=== PATIENT | male | born 1945 | race Hispanic/Latino ===

== ENCOUNTER 2020-11-17 12:23 | Inpatient (IN) | payer MEDICARE ==
[~2020-11-17 12:23] MED LIST: Iopamidol-370 76% 500 ML 1 ML ONE
--- NOTE | 2020-11-17 13:45 | RAD ---
EXAM: Single view of the chest HISTORY: Shortness of breath with exertion COMPARISON: None FINDINGS: Single view of the chest shows a normal sized cardiomediastinal silhouette. Increased inte rstitial lung markings are present. There are possible scattered multifocal airspace opacities in the lungs. Degenerative changes are seen in the spine. IMPRESSION: Possible multifocal subtle infiltrates
[2020-11-17 14:10] LABS: #Lymphocytes 0.6 thou/uL (1.20-3.40); #Monocytes 0.5 thou/uL (0.11-0.59); #Neutrophils 12.6 thou/uL (1.40-6.50); %Basophils 0.1 % (0.0-1.0); %Eosinophils 0.1 % (0.0-10.0); %Lymphocytes 4.7 % (21.0-51.0); %Monocytes 3.3 % (0.0-10.0); %Neutrophils 91.8 % (42.0-75.0); Hemoglobin 6.8 g/dL (14.0-18.0); Mean Corpuscular HGB CONC 34.6 g/dL (32.0-36.0); Mean Corpuscular Hemoglobin 31.3 pg (27.0-31.0); Mean Corpuscular Volume 90.4 fL (78.0-98.0); Mean Platelet Volume 7.7 fL (7.4-10.4); Platelet Count 379 thou/uL (130-400); RBC Distribution Width 13.6 % (11.5-14.5); Red Blood Cell (RBC) Count 2.18 mill/uL (4.70-6.10); White Blood Cell (WBC) Count 13.7 thou/uL (4.8-10.8)
[2020-11-17 14:31] LABS: ALT (SGPT) 15 U/L (8-55); AST (SGOT) 29 U/L (5-34); Albumin 3.7 g/dL (3.4-4.8); Alkaline Phosphatase 77 U/L (40-110); Anion Gap 17 mmol/L (10-20); BUN (Urea Nitrogen) 23 mg/dL (8.4-25.7); Bilirubin, Total 0.4 mg/dL (0.2-1.2); Calc. Creatinine Clearance 0 mL/min (70-130); Calcium 8.4 mg/dL (7.8-10.44); Carbon Dioxide 21 mmol/L (23-31); Chloride 100 mmol/L (98-107); Globulin 2.8 g/dL (2.4-3.5); Glucose 198 mg/dL (83-110); Potassium 4.1 mmol/L (3.5-5.1); Protein, Total 6.5 g/dL (5.8-8.1); Sodium 134 mmol/L (136-145)
[2020-11-17 15:19] LABS: CKMB 14.9 ng/mL (0-6.6)
[2020-11-17] MEDS ORDERED: Pantoprazole 40 MG VIAL ONE ×2 (17:21→17:22)
[2020-11-17 18:40] LABS: Troponin I 3.864 ng/mL (< 0.028)
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
[2020-11-17] MEDS ORDERED: Lactated Ringer's 1,000 ML IV SCH (19:45)
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
[2020-11-17] MEDS ORDERED: Acetaminophen 325 MG TAB PO PRN (20:36)
[2020-11-17] MEDS ORDERED: Ondansetron ODT 4 MG TAB PO PRN (20:36)
[2020-11-17] MEDS ORDERED: Sodium Chloride 0.9% (PF) 10 ML VIAL FS PRN (21:00)
[2020-11-17 21:20] LABS: INR-International Normal Ratio 1.2; PTT 25.7 sec (22.9-36.1); Prothrombin Time 15.6 sec (12.0-14.7)
[2020-11-17 21:32] LABS: #Lymphocytes 1.3 thou/uL (1.20-3.40); #Monocytes 0.7 thou/uL (0.11-0.59); #Neutrophils 10.2 thou/uL (1.40-6.50); %Basophils 0.4 % (0.0-1.0); %Eosinophils 0.2 % (0.0-10.0); %Lymphocytes 10.3 % (21.0-51.0); %Monocytes 5.7 % (0.0-10.0); %Neutrophils 83.4 % (42.0-75.0); Mean Corpuscular HGB CONC 33.7 g/dL (32.0-36.0); Mean Corpuscular Hemoglobin 31.1 pg (27.0-31.0); Mean Corpuscular Volume 92.3 fL (78.0-98.0); Mean Platelet Volume 8.2 fL (7.4-10.4); Platelet Count 300 thou/uL (130-400); RBC Distribution Width 13.7 % (11.5-14.5); Red Blood Cell (RBC) Count 2.25 mill/uL (4.70-6.10); White Blood Cell (WBC) Count 12.2 thou/uL (4.8-10.8)
[2020-11-17 21:48] LABS: Hemoglobin A1c 8.1 % (4.0-6.0)
[2020-11-17 21:51] LABS: Troponin I 4.651 ng/mL (< 0.028)
[2020-11-17] MEDS ORDERED: Dextrose 5% in Water 1,000 ML IV PRN (22:35)
[2020-11-17] MEDS ORDERED: HumaLOG 300 UNITS/3 ML VIAL SC PRN ×2 (22:35)
[2020-11-17] MEDS ORDERED: Dextrose 50% Abboject 50 ML SYRINGE SLOW IVP PRN (22:35)
[2020-11-17] MEDS ORDERED: Furosemide 40 MG/4 ML VIAL SLOW IVP SCH (22:45)
[2020-11-17] MEDS ORDERED: Furosemide 40 MG/4 ML VIAL ONE (23:45)
[2020-11-18 01:02] VITALS: BMI 32.6
[2020-11-18 02:01] LABS: #Eosinphils 0.1 thou/uL (0.0-0.7); #Lymphocytes 1.3 thou/uL (1.20-3.40); #Monocytes 0.7 thou/uL (0.11-0.59); #Neutrophils 9.1 thou/uL (1.40-6.50); %Eosinophils 0.7 % (0.0-10.0); %Lymphocytes 11.3 % (21.0-51.0); %Monocytes 5.9 % (0.0-10.0); Hemoglobin 8.6 g/dL (14.0-18.0); Mean Corpuscular HGB CONC 34.6 g/dL (32.0-36.0); Mean Corpuscular Volume 89.5 fL (78.0-98.0); Mean Platelet Volume 7.7 fL (7.4-10.4); Platelet Count 317 thou/uL (130-400); RBC Distribution Width 13.4 % (11.5-14.5); Red Blood Cell (RBC) Count 2.77 mill/uL (4.70-6.10); White Blood Cell (WBC) Count 11.1 thou/uL (4.8-10.8)
[2020-11-18 02:33] LABS: Anion Gap 16 mmol/L (10-20); BUN (Urea Nitrogen) 21 mg/dL (8.4-25.7); Calc. Creatinine Clearance 59 mL/min (70-130); Calcium 8.3 mg/dL (7.8-10.44); Carbon Dioxide 22 mmol/L (23-31); Chloride 103 mmol/L (98-107); Glucose 134 mg/dL (83-110); Potassium 3.9 mmol/L (3.5-5.1); Sodium 137 mmol/L (136-145)
[2020-11-18] MEDS ORDERED: Furosemide 40 MG/4 ML VIAL SLOW IVP SCH (02:48)
[2020-11-18 02:49] LABS: CKMB 14.3 ng/mL (0-6.6); Critical Call CKMB RESULT DECREASING
[2020-11-18 06:01] LABS: SARS-CoV-2 PCR by NAA Not Detected (NotDetected)
--- NOTE | 2020-11-18 06:03 | PDOC.FM ---
- Subjective Subjective: Mr. Adan Puente is doing well this morning and denies any complaints/concerns. He continues to deny abdominal pain, chest pain/pressure/discomfort. He denies any BMs since admission. Tele shows NSR in the 60s-70s. He is agreeable to GI and cards evals today. - Objective Vital Signs & Weight: Vital Signs (12 hours) Temp Pulse Resp BP BP Pulse Ox 11/18/20 04:12 97.8 F 70 20 138/63 99 11/18/20 00:50 98.7 F 62 20 158/68 H 95 11/17/20 20:36 97.9 F 63 18 118/38 L 99 11/17/20 20:26 98.3 F 72 15 137/63 99 Weight Weight 89.04 kg I&O: 11/16/20 11/17/20 11/18/20 06:59 06:59 06:59 Intake Total 0 Output Total 1075 Balance -1075 Result Diagrams: 11/18/20 01:42 11/18/20 01:42 Phys Exam - Physical Examination Constitutional: NAD Neck: supple Respiratory: no wheezing, clear to auscultation bilateral Cardiovascular: RRR 3/6 systolic murmur loudest at PMI Gastrointestinal: soft, non-tender, no distention, positive bowel sounds Musculoskeletal: no edema Neurological: non-focal, moves all 4 limbs Psychiatric: normal affect, A&O x 3 Skin: no rash Dx/Plan - Plan Plan: Patient is a 75M admitted for: GI Bleed -H/H 6.8/19.7, 2u pRBC ordered in the ED -> 4-hr post H/H is 8.6/24.7 * Continue to monitor with goal of >8 -FOBT positive -pantoprazole IV BID. IV maintenance fluids -PT 15.6, PTT/INR nml -abdomen/pelvis CT: extensive prominent diverticulosis of the descending colon and sigmoid colon with a focal area of mild wall prominence involving the sigmoid colon posteriorly. A focal mass within the sigmoid colon cannot be fully excluded. * as CXR demonstrates possible multifocal subtle infiltrates with procal 0.04, consider chest CT for further evaluation of possible malignancy -GI consult this am for likely colonoscopy and/or EGD -NPO at midnight Symptomatic Anemia -patient has had worsening GONZALEZ -2u pRBC transfused; H/H as above -VSS at this time Holosystolic murmur -Grade 3-4/6 murmur appreciated throughout chest and into abdomen -possibly exacerbated by anemia -echo pending this am -BNP 1100, will give lasix in between units of blood; strict I/O; monitor fluid status * Balance of -1075 today; euvolemic on exam -blood cultures added and pending to evaluate for endocarditis NSTEMI -likely type 2 due to demand ischemia from symptomatic anemia -trop 2.051>3.864>5.992 -patient denies any chest pain -no ST changes seen on EKG -will hold off on anticoagulation due to suspected GI bleed -Cards consult this am DM2, no hx -A1C 8.1 -mild SSI added to regimen -consider adding daily medication. caution in setting of renal function -accuchecks CKD -Creatinine 1.44 > 1.33, with unknown baseline -GFR 48 > 52 -mIVF -monitor with am BMP Diet: NPO for likely GI procedures tmrw DVTppx: SCDs, hold off anticoagulation for possible GI bleed CODE: full PCP: CC Dispo: Admitted to inpatient telemetry for symptomatic anemia likely 2/2 GI bleed and NSTEMI. eLOS >48hrs, pending GI and cards recs. Addendum - Attending - Attending Attestation Date/Time: 11/18/20 7963 I personally evaluated the patient and discussed the management with Dr. Liu I agree with the History, Examination, Assessment and Plan documented above with any addition or exceptions noted below.
[2020-11-18] MEDS ORDERED: Pantoprazole 40 MG VIAL IVP SCH (09:00)
[2020-11-18 11:39] VITALS: BP 166/72; TEMP 98.3
--- NOTE | 2020-11-18 14:33 | CON ---
DATE OF CONSULTATION: HISTORY OF PRESENT ILLNESS: The patient is a 75-year-old gentleman who presents with dyspnea and dark stool. The patient has no previous cardiac history. He states 4 days ago he started noticing having dark stool and some bright red blood per rectum. The patient started becoming short of breath. He presented to the emergency room for further evaluation. The patient denies having any chest discomfort. The patient's only known cardiac risk factor is diabetes mellitus. PAST MEDICAL HISTORY: Diabetes mellitus. PAST SURGICAL HISTORY: None. SOCIAL HISTORY: Nonsmoker. FAMILY HISTORY: No strong family history of heart disease. MEDICATIONS: None. ALLERGIES: NONE. REVIEW OF SYSTEMS: Ten-point system otherwise unremarkable. PHYSICAL EXAMINATION: GENERAL: A pale gentleman, in no acute distress. VITAL SIGNS: Blood pressure 156/72. NECK: No jugular vein distention. LUNGS: Clear to auscultation. HEART: Regular rate and rhythm. Normal S1 and S2 with a 3/6 systolic murmur. ABDOMEN: Nontender and nondistended. EXTREMITIES: Varicose veins. VASCULAR: Radial pulses 2+. LABORATORY DATA: Sodium 137, potassium 3.9, chloride 103, bicarbonate 22, BUN 29, creatinine 1.3, and glucose 134. Troponin was 5.4. White blood cell count was 11.1, hemoglobin 8.6, hematocrit 24.7, and platelets 317. EKG revealed him to have normal sinus rhythm, nonspecific ST abnormality. Echocardiogram normal left ventricular ejection fraction of 55% to 60% with severe aortic stenosis. IMPRESSION: 1. Gastrointestinal hemorrhage. 2. Aortic stenosis. 3. Non-Q-wave myocardial infarction, probably secondary to demand ischemia from anemia and aortic stenosis. 4. Mild congestive heart failure. 5. Diabetes mellitus. PLAN: This gentleman presents with a GI hemorrhage. He is suffered a small non-Q-wave myocardial infarction probably due to demand ischemia. He has severe aortic stenosis. The patient is undergoing GI evaluation. From a cardiac standpoint, he will need close followup for his aortic stenosis. We will follow this patient with you through his hospitalization. Job ID: [id number] MTDD
[2020-11-18 14:39] LABS: Cardiac Risk 4.6 (Less than 4.5)
[2020-11-18] MEDS ORDERED: metFORMIN 500 MG TAB PO SCH (17:00)
[2020-11-18] MEDS ORDERED: Atorvastatin Calcium 40 MG TAB PO SCH (21:00)
[2020-11-18] MEDS ORDERED: FLU VACC QS2020-21(65YR UP)/PF 240 MCG/0.7 ML SYRINGE IM ONE (21:00)
--- NOTE | 2020-11-19 05:00 | DIS ---
DATE OF ADMISSION: 11/17/2020 DATE OF DISCHARGE: 11/18/2020 RESIDENT: Annamaria Liu MD DISCHARGE ATTENDING: Aaron Ha MD CONSULTS: 1. GI, Dr. Gates (11/18). 2. Cardiology, Dr. Garcia (11/18). PROCEDURES: 1. Chest x-ray, (11/18) -- possible multifocal subtle infiltrate. 2. CT abdomen/pelvis (11/18) -- diverticulosis of descending colon and sigmoid colon with a focal area involving the sigmoid colon that could be related to mild diverticulitis, although a focal mass cannot be fully excluded. 3. Echocardiogram (11/18) -- ejection fraction 55% to 60% with thickened aortic valve leaflets and severe aortic stenosis. Impaired relaxation consistent with diastolic dysfunction. Severe aortic stenosis. PRIMARY DIAGNOSES: Symptomatic anemia, non-ST segment elevation myocardial infarction type 2, gastrointestinal bleed, acute kidney injury versus chronic kidney disease, holosystolic murmur, type 2 diabetes, diverticulosis, and possible sigmoid mass. SECONDARY DIAGNOSIS: None. DISCHARGE MEDICATIONS: None. DISCONTINUED MEDICATIONS: None. HISTORY OF PRESENT ILLNESS/HOSPITAL COURSE: This is a 75-year-old male with GI bleed who presented to the ED after several days of progressively worsening dyspnea on exertion. He has no reported past medical history since he has not seen a physician in 20 to 30 years. He endorses several years of intermittent black stools, but states that over the last 5 days, they had gotten worse and he was having more red and black than normal as well as more diarrhea in nature. He also endorsed intermittent changes in stool character and was uncertain about unintended weight loss. He denied any history of colonoscopy or EGD, family history of colon/rectal/stomach cancer, although states his mom had some sort of cancer. On admission, his hemoglobin was found to be 6.8 with a positive FOBT and a BNP of 1100. Given his history, a CT of the abdomen and pelvis was obtained with the results as described above. As such, the patient was transfused 2 units of packed red blood cells after which he was given Lasix to counteract the fluid overload. 4 hour post transfusion, H/H showed an improved hemoglobin of 8.6. These findings in addition to the patient's history and a procalcitonin of 0.04 were suspicious for underlying malignancy. Dr. Gates was consulted the morning of 11/18 for evaluation. On arrival, he was also found to have a troponin of 2, which was subsequently trended and continued increasing to the point of 5.992. Throughout this, the patient denied any chest pain/pressure/discomfort and he remained in normal sinus rhythm in 60s to 70s on telemetry without any events. Due to the obvious up trend in troponins, the trend order was discontinued and Dr. Garcia was consulted on the morning of 11/18. NSTEMI was noted on EKG, suspected to be 2/2 demand ischemia. On admission, he was also found to have a creatinine of 1.44. There was no baseline available, but by the time of repeat labs that had improved to 1.33. The patient has a grade 3/6 holosystolic murmur, so an echocardiogram was obtained on the morning of 11/18 with the results as described above. At this point, Dr. Gates did not have the chance to evaluate the patient and no further workup was performed as the patient chose to leave [facility]. DISPOSITION: Stable. DISCHARGE INSTRUCTIONS: 1. Location: The patient presumably went home. 2. Diet: Diabetic diet. 3. Follow up: It would be ideal if the patient could establish and follow up with the PCP in the outpatient setting. It is crucial that he be evaluated further by Gastroenterology and followed by Cardiology. Job ID: [id number] MTDD
--- NOTE | 2020-11-19 12:52 | PQF ---
CLINICAL DOCUMENTATION CLARIFICATION FORM: Dear Dr. Annamaria Liu / Dr. Aaron Ha Date: 11-19-20 Please exercise your independent, professional judgment in responding to the clarification form. Clinical indicators are provided on the bottom of this form for your review Please check appropriate box(es): [ ] Acute blood loss anemia [ ] Chronic blood loss anemia [ ] Chronic anemia of CKD [ X ] Other diagnosis Acute on chronic blood loss anemia [ ] Unable to determine For continuity of documentation, please document condition throughout progress notes and discharge summary. Thank You. To be completed by CDI/Coding staff for physician review: CLINICAL INDICATORS - SIGNS / SYMPTOMS / LABS / RESULTS AND LOCATION IN EMR LABS: Hgb Hct 2.8 @ 1400 6.8 19.7 2.8 @ 2042 7.0 20.7 2.9 @ 0142 8.6 24.7 H&P ([facility]): PMH: none GI BLEED; NSTEMI likely type 2 demand ischemia d/t symptomatic anemia SYMPTOMATIC ANEMIA; CKD RISK FACTORS / RESULTS AND LOCATION IN EMR ED: NSTEMI; GI BLEED; SYMPTOMATIC ANEMIA; H&P ([facility]en): PMH: none GI BLEED; NSTEMI likely type 2 demand ischemia d/t symptomatic anemia SYMPTOMATIC ANEMI CKD TREATMENTS / RESULTS AND LOCATION IN EMR CPOE: 2 Units PrBC 2.8.21 MAR: Lactated Ringers IV @120ml/hr IV 2.8.21 CDS Signature: Glenda Ram RN, CCDS Phone #: [phone] [email or web address] This is a permanent part of the Medical Record [facility]
== END 2020-11-18 16:00 | disposition left against medical advice (07) | DRG 377 ==
LOC: ERS 12:23 → ERHOLD 17:21 → 2NO 11-18 00:52
PROVIDERS: ADMIT Family Medicine; ATTEND Family Medicine
PROC: 30233N1 Transfusion of Nonautologous Red Blood Cells into Peripheral Vein, Percutaneous Approach (ICD-10-PCS; principal; 2020-11-17)
DX: K92.2 Gastrointestinal hemorrhage, unspecified (principal); I21.A1 Myocardial infarction type 2; N17.9 Acute kidney failure, unspecified; D62 Acute posthemorrhagic anemia; E11.22 Type 2 diabetes mellitus with diabetic chronic kidney disease; I35.0 Nonrheumatic aortic (valve) stenosis; I50.9 Heart failure, unspecified; R01.1 Cardiac murmur, unspecified; N18.9 Chronic kidney disease, unspecified; Z20.822 Contact with and (suspected) exposure to COVID-19; K63.89 Other specified diseases of intestine; Z87.891 Personal history of nicotine dependence
CPT/HCPCS: 36415; 36416; 36430; 71045; 74177; 80048; 80053; 80061; 82274; 82553; 83036; 83880; 84145; 84484; 85025; 85610; 85730; 86850; 86900; 86901; 87040; 87635; 93005; 93306; 94760; 96374; C9113; J1940; P9016; Q9967; U0003; U0005

== ENCOUNTER 2020-11-19 19:18 | Inpatient (IN) | payer MEDICARE ==
[2020-11-19 19:47] LABS: #Eosinphils 0.1 thou/uL (0.0-0.7); #Lymphocytes 0.9 thou/uL (1.20-3.40); #Monocytes 0.5 thou/uL (0.11-0.59); #Neutrophils 8.4 thou/uL (1.40-6.50); %Basophils 0.3 % (0.0-1.0); %Eosinophils 0.6 % (0.0-10.0); %Lymphocytes 9.1 % (21.0-51.0); %Monocytes 5.3 % (0.0-10.0); %Neutrophils 84.7 % (42.0-75.0); Hemoglobin 7.4 g/dL (14.0-18.0); Mean Corpuscular HGB CONC 34.4 g/dL (32.0-36.0); Mean Corpuscular Hemoglobin 31.1 pg (27.0-31.0); Mean Corpuscular Volume 90.4 fL (78.0-98.0); Mean Platelet Volume 7.4 fL (7.4-10.4); Platelet Count 361 thou/uL (130-400); RBC Distribution Width 13.8 % (11.5-14.5); Red Blood Cell (RBC) Count 2.39 mill/uL (4.70-6.10); White Blood Cell (WBC) Count 9.9 thou/uL (4.8-10.8)
[2020-11-19 19:54] LABS: INR-International Normal Ratio 1.2; Prothrombin Time 15.1 sec (12.0-14.7)
[2020-11-19 20:08] LABS: ALT (SGPT) 17 U/L (8-55); AST (SGOT) 22 U/L (5-34); Albumin 3.4 g/dL (3.4-4.8); Alkaline Phosphatase 73 U/L (40-110); Anion Gap 16 mmol/L (10-20); BUN (Urea Nitrogen) 23 mg/dL (8.4-25.7); Bilirubin, Total 0.4 mg/dL (0.2-1.2); Calc. Creatinine Clearance 0 mL/min (70-130); Calcium 8.3 mg/dL (7.8-10.44); Carbon Dioxide 23 mmol/L (23-31); Chloride 103 mmol/L (98-107); Globulin 2.6 g/dL (2.4-3.5); Glucose 209 mg/dL (83-110); Potassium 4.1 mmol/L (3.5-5.1)
[2020-11-19 20:16] LABS: Sodium 138 mmol/L (136-145)
[2020-11-19 21:14] LABS: CKMB 4.5 ng/mL (0-6.6)
--- NOTE | 2020-11-19 21:43 | PDOC.FPRHP ---
- History of Present Illness Chief Complaint: GONZALEZ, blood in stool History of Present Illness: Patient is a 75M that was recently admitted for GI bleed and NSTEMI and left AMA that returned to the ED for continued GONZALEZ and small amounts of blood in his stool. He continues to deny chest pain. He reports that he left AMA because he was afraid that he was going to need surgery, but he realizes that he needs help and agrees to be admitted. - Allergies/Adverse Reactions Allergies Allergy/AdvReac Type Severity Reaction Status Date / Time No Known Drug Allergies Allergy Unverified 11/17/20 19:52 - Home Medications Medication Instructions Recorded Confirmed Type No Known 11/18/20 11/20/20 History - History PMHx: Severe aortic stenosis, HFpEF, and DM2 all diagnosed during last admission PSHx: none FHx: mother had cancer, unknown type Social: quit smoking 30 years ago, quit drinking 20 years ago, no drug use - Review of Systems General: denies: fever/chills, weight/appetite/sleep changes Eyes: denies: eye pain, vision changes ENT: denies: nasal congestion, rhinorrhea Respiratory: reports: shortness of breath, exercise intolerance. denies: cough Cardiovascular: denies: chest pain, palpitation, edema Gastrointestinal: reports: GI bleeding. denies: nausea, vomiting, abdominal pain Genitourinary: denies: incontinence, dysuria, discharge Skin: denies: rashes, lesions Musculoskeletal: denies: pain, tenderness, stiffness Neurological: denies: numbness, syncope Psychological: denies: anxiety, depression - Vital signs BP: [101/47] HR: [75] RR: [18] Tmax: [98.2F] Pox: [99]% on [RA] Wt: [94kg] - Physical Exam Constitutional: NAD, awake, alert and oriented, well developed HEENT: normocephalic and atraumatic, EOMI, MMM Neck: supple, FROM, trachea midline Chest: no-tender to palpation, no lesions Heart: RRR, normal S1/S2, other (3/6 holosystolic murmur) Lungs: CTAB, no respiratory distress, good air movement Abdomen: soft, non-tender, bowel sounds present Musculoskeletal: normal structure, normal tone, ROM grossly normal Neurological: no focal deficit, normal sensation Skin: no rash/lesions, good turgor Heme/Lymphatic: no unusual bruising or bleeding, no purpura Psychiatric: normal mood and affect, intact recent and remote memory, other (poor judgment and insight) FMR H&P: Results - Labs Result Diagrams: 11/19/20 19:37 11/19/20 19:37 Lab results: WBC 9.9 thou/uL (4.8-10.8) 11/19/20 19:37 Hgb 7.4 g/dL (14.0-18.0) L 11/19/20 19:37 Hct 21.6 % (42.0-52.0) L 11/19/20 19:37 MCV 90.4 fL (78.0-98.0) 11/19/20 19:37 Plt Count 361 thou/uL (130-400) 11/19/20 19:37 Neutrophils % 84.7 % (42.0-75.0) H 11/19/20 19:37 Sodium 138 mmol/L (136-145) 11/19/20 19:37 Potassium 4.1 mmol/L (3.5-5.1) 11/19/20 19:37 Chloride 103 mmol/L (98-107) 11/19/20 19:37 Carbon Dioxide 23 mmol/L (23-31) 11/19/20 19:37 BUN 23 mg/dL (8.4-25.7) 11/19/20 19:37 Creatinine 1.42 mg/dL (0.7-1.3) H 11/19/20 19:37 Glucose 209 mg/dL (83-110) H 11/19/20 19:37 Calcium 8.3 mg/dL (7.8-10.44) 11/19/20 19:37 Total Bilirubin 0.4 mg/dL (0.2-1.2) 11/19/20 19:37 AST 22 U/L (5-34) 11/19/20 19:37 ALT 17 U/L (8-55) 11/19/20 19:37 Alkaline Phosphatase 73 U/L (40-110) 11/19/20 19:37 CK-MB (CK-2) 4.5 ng/mL (0-6.6) 11/19/20 19:37 Serum Total Protein 6.0 g/dL (5.8-8.1) 11/19/20 19:37 Albumin 3.4 g/dL (3.4-4.8) 11/19/20 19:37 - EKG Interpretation EKG: VR 69, WY 138, QRS 94, QTc 443, no ST segment elevation FMR H&P: A/P - Plan Patient is a 75M with PMHx of severe aortic stenosis, HFpEF, DM2 admitted for: #GI Bleed -patient has continued to have blood in his stools since leaving AMA -H/H 7.4/21.6, down from 8.6/24.7 after receiving 2u pRBC during last admission -2u pRBC ordered to be given, will get 4-hr post H/H -40mg pantoprazole IV BID -abdomen/pelvis CT from last admission: extensive prominent diverticulosis of the descending colon and sigmoid colon with a focal area of mild wall prominence involving the sigmoid colon posteriorly. A focal mass within the sigmoid colon cannot be fully excluded. -as CXR demonstrates possible multifocal subtle infiltrates with procal 0.04, consider chest CT for further evaluation of possible malignancy -GI consult in am for likely colonoscopy and/or EGD, no need for emergent consult at this time as VSS -NPO at midnight #Symptomatic Anemia -patient has had worsening GONZALEZ -H/H 7.4/21.6, down from 8.6/24.7 after 2u pRBC during last admission -2u pRBC ordered, will get 4-hr post H/H -VSS at this time #HFpEF -echo 11/18: EF 55-60%, findings suggestive of diastolic dysfunction -BNP 499 down from 1120, will give IV lasix with 2u pRBC -will avoid fluid overload #Severe Aortic Stenosis -Grad 3-4/6 murmur appreciated throughout chest and into abdomen -possible exacerbated by anemia -echo during last admission: EF 55-60%, severe aortic stenosis, diastolic dysfunction -Dr. Garcia consulted during last admission; will re-consult in am, appreciate recs #NSTEMI, likely type 2 due to demand ischemia from symptomatic anemia -trop 2.051>3.864 (on 11/17)>1.88 today -patient denies any chest pain -no ST changes see on EKG -2u pRBC ordered in ED, will follow with 4-hr post H/H -as patient had elevated trop on 11/17 and has since declined, in combination with GI bleed, will hold off on anticoagulation at this time -ASCVD risk: 43.8%, will start statin #DM2 -A1C 8.1 -mild ISS added to regimen -can consider adding daily medication in am #CKD -Creatinine 1.42, GFR 48 -unknown baseline -patient is getting 2u pRBC, will monitor kidney function closely Diet: NPO for likely GI procedures tmrw DVTppx: SCDs, hold off anticoagulation for possible GI bleed Dispo: Admitted to inpatient telemetry for symptomatic anemia likely 2/2 GI bleed CODE: full PCP: Sarah after leaving [facility] FMR H&P: Upper Level - Plan Date/Time: 11/19/202141 I, [], have evaluated this patient and agree with findings/plan as outlined by general intern resident. Pertinent changes/additions are listed here. Addendum - Attending - Attending Attestation Date/Time: 11/20/207 I personally evaluated the patient and discussed the management with Dr. Zaldivar. I agree with the History, Examination, Assessment and Plan documented above with any addition or exceptions noted below. He has returned to ER after leaving [facility] 2 days ago for same complaint. exam unremarkable. trop still elevated. will tx 2 u PRBC due to suspect CVD for goal hemoglobin of 10. GI to see tomorrow to evaluate for GI bleeding and possible colon mass seen on CT scan 2 days ago.
[2020-11-19 22:11] LABS: Bilirubin Negative (Negative); Blood, Urine Negative (Negative); Clarity Clear (Clear); Glucose, Urine (Dipstick) 30 mg/dL (Negative); Ketone, Urine Trace mg/dL (Negative); Leukocyte Negative Leu/uL (Negative); Nitrite Negative (Negative); Protein, Urine (Dipstick) 20 mg/dL (Neg-Trace); Specific Gravity, Urine 1.021 (1.002-1.036); Urobilinogen Normal mg/dL (Less than 2); pH, Urine 5.5 (5.0-9.0)
[2020-11-19] MEDS ORDERED: Furosemide 40 MG/4 ML VIAL SLOW IVP SCH (22:15)
[2020-11-19] MEDS ORDERED: HumaLOG 300 UNITS/3 ML VIAL SC PRN ×2 (23:08)
[2020-11-19] MEDS ORDERED: Dextrose 5% in Water 1,000 ML IV PRN (23:08)
[2020-11-19] MEDS ORDERED: Acetaminophen 325 MG TAB PO PRN (23:08)
[2020-11-19] MEDS ORDERED: Dextrose 50% Abboject 50 ML SYRINGE SLOW IVP PRN (23:08)
[2020-11-19 23:17] LABS: Troponin I 1.979 ng/mL (< 0.028)
[2020-11-20] MEDS ORDERED: Pantoprazole 40 MG VIAL IVP SCH (00:45)
[2020-11-20 02:20] LABS: Critical Call Chem Troponin I RESULT DECREASING; Troponin I 1.709 ng/mL (< 0.028)
--- NOTE | 2020-11-20 07:01 | PDOC.FM ---
- Subjective Subjective: Mr. Adan Puente is doing well this morning. He states he left because he thought he was going to be cut open and that "nobody explained to me what was going to happen". He is agreeable to cardiology and GI eval and states he will not leave AMA now that he knows what is happening. He denies CP, chest discomfort, abdominal pain. He endorses weakness in his knees when he stands to walk, as well as memory issues. He is asking if we can fix these things in the hospital. - Objective Vital Signs & Weight: Vital Signs (12 hours) Temp Pulse Resp BP Pulse Ox 11/20/20 04:22 98.8 F 99 11/20/20 04:07 98.6 F 99 11/20/20 02:51 98.2 F 100 11/20/20 00:15 98.9 F 18 99 11/20/20 00:00 98.6 F 18 100 11/19/20 22:45 98.6 F 62 18 143/67 H 100 Weight Weight 89.403 kg Most Recent Monitor Data Heart Rate from ECG 66 NIBP 156/74 Respiration from ECG 16 I&O: 11/18/20 11/19/20 11/20/20 06:59 06:59 06:59 Intake Total 1050 Output Total 1490 Balance -440 Result Diagrams: 11/20/20 11:20 11/20/20 11:20 Phys Exam - Physical Examination Constitutional: NAD Neck: supple, full ROM Respiratory: clear to auscultation bilateral Cardiovascular: RRR Significant systolic murmur at PMI c/w hx of severe Gastrointestinal: soft, non-tender, no distention, positive bowel sounds Musculoskeletal: no edema Neurological: non-focal, moves all 4 limbs Psychiatric: normal affect, A&O x 3 Skin: no rash Dx/Plan - Plan Plan: Patient is a 75M admitted for GI bleed after leaving [facility] on 11/18: GI Bleed -patient has continued to have blood in his stools since leaving [facility] on 11/18 -H/H 7.4/21.6, down from 8.6/24.7 after receiving 2u pRBC during last admission * Continue to monitor with goal of >8 -2u pRBC being transfused. 4-hr post H/H pending -40mg pantoprazole IV BID -abdomen/pelvis CT from last admission: extensive prominent diverticulosis of the descending colon and sigmoid colon with a focal area of mild wall prominence involving the sigmoid colon posteriorly. A focal mass within the sigmoid colon cannot be fully excluded. -CXR demonstrates possible multifocal subtle infiltrates with procal 0.04, consider chest CT for further evaluation of possible malignancy -GI consult today, Dr. Tello, for likely colonoscopy and/or EGD. Appreciate recs -NPO Symptomatic Anemia -patient has had worsening GONZALEZ -H/H 7.4/21.6, down from 8.6/24.7, as above -Transfusion and 4hr post labs, as above -VSS at this time HFpEF -echo 11/18: EF 55-60%, findings suggestive of diastolic dysfunction -BNP 499 down from 1120 at previous admission. will give IV lasix with 2u pRBC -monitor fluid status. Euvolemic on exam this am -Strict I/Os, caution with fluid resuscitation Severe Aortic Stenosis -Grade 3-4/6 murmur appreciated throughout chest and into abdomen -possibly exacerbated by anemia -echo during last admission with results as above -Dr. Garcia consulted during last admission and wanted to follow. Re-consulted cardiology, Dr. Long, this am. Appreciate recs NSTEMI -suspect it's type 2 due to demand ischemia from symptomatic anemia -trop 2.051>5.99 on 11/17 > 1.88 down to 1.709 today -patient denies any chest pain. no ST changes see on EKG -admit to tele -as patient had elevated trop on 11/17 and has since declined, in combination with GI bleed, will hold off on anticoagulation at this time -ASCVD risk: 43.8%, will start statin -cards consult, as above DM2 -A1C 8.1 -hold SSI at this time. suspect pt will not be compliant given all the medication initiation and medical changes occurring this hospitalization -can consider adding daily medication after discussion with pt -no accu checks CKD -Creatinine 1.42, GFR 48 c/w values on 11/17 -unknown baseline -monitor with 4hr post labs and then daily BMP Dispo: Admitted to inpatient telemetry for symptomatic anemia likely 2/2 GI bleed. GI and cards consults this am. eLOS >48hrs Diet: NPO for likely GI procedure DVTppx: SCDs, hold off anticoagulation for possible GI bleed CODE: full PCP: Sarah after leaving AMA Addendum - Attending - Attending Attestation Date/Time: 11/21/20 0709 I personally evaluated the patient and discussed the management with Dr. Amor Macedo yesterday. I agree with the History, Examination, Assessment and Plan documented above with any addition or exceptions noted below.
[2020-11-20] MEDS: Pantoprazole 40 MG VIAL IVP SCH ×2 (08:53→20:01)
[2020-11-20 11:36] LABS: #Eosinphils 0.1 thou/uL (0.0-0.7); #Lymphocytes 1.1 thou/uL (1.20-3.40); #Monocytes 0.5 thou/uL (0.11-0.59); #Neutrophils 6.7 thou/uL (1.40-6.50); %Basophils 0.5 % (0.0-1.0); %Eosinophils 0.9 % (0.0-10.0); %Lymphocytes 12.8 % (21.0-51.0); %Monocytes 6.4 % (0.0-10.0); %Neutrophils 79.4 % (42.0-75.0); Hemoglobin 9.2 g/dL (14.0-18.0); Mean Corpuscular HGB CONC 33.8 g/dL (32.0-36.0); Mean Corpuscular Volume 91.7 fL (78.0-98.0); Mean Platelet Volume 7.5 fL (7.4-10.4); Platelet Count 294 thou/uL (130-400); RBC Distribution Width 14.4 % (11.5-14.5); Red Blood Cell (RBC) Count 2.95 mill/uL (4.70-6.10); White Blood Cell (WBC) Count 8.4 thou/uL (4.8-10.8)
[2020-11-20 11:54] LABS: Anion Gap 15 mmol/L (10-20); BUN (Urea Nitrogen) 23 mg/dL (8.4-25.7); Calc. Creatinine Clearance 63 mL/min (70-130); Calcium 8.1 mg/dL (7.8-10.44); Carbon Dioxide 26 mmol/L (23-31); Chloride 102 mmol/L (98-107); Glucose 150 mg/dL (83-110); Potassium 3.7 mmol/L (3.5-5.1); Sodium 139 mmol/L (136-145)
--- NOTE | 2020-11-20 12:34 | CON ---
DATE OF CONSULTATION: 11/20/2020 REQUESTING PHYSICIAN: Dr. Liu. REASON FOR CONSULTATION: GI bleeding and anemia. HISTORY OF PRESENT ILLNESS: Michael Puente is a very pleasant 75-year-old man, who reports no significant past medical history prior to recent presentation. He was briefly hospitalized here on November 17, presenting with [id number] myocardial infarction and shortness of breath. He had an echocardiogram, which demonstrated severe aortic stenosis, and troponin was elevated over 5. He was evaluated by Cardiology, but actually left the hospital AMA 2 days ago. However, at home, he continued to have issues with dyspnea, particularly on exertion, and he also had an episode of orthostatic lightheadedness, though no syncope, and that prompted presentation again. Troponin remains elevated, but to a lesser degree. He is hemodynamically stable. His dyspnea is stable. He denies any chest pain or any abdominal pain, but he does report that intermittently for actually several months, he has been having some blood in his stool, this will either be bright red or dark red or black, it changes colors. He is anemic. In fact, during recent evaluation, hemoglobin was 6.8. He received 2 units of RBC transfusion and it went up to 8.6, but upon presentation here, now it is down again to 7.4. He is getting 2 more units of blood today. Cardiology re-evaluation is pending. He has never undergone EGD or colonoscopy, has no history of peptic ulcer disease. His mother had some unknown malignancy. Notably, CT of the abdomen and pelvis from last admission suggested possible area of wall prominence involving the sigmoid colon posteriorly, and mass lesion could not be fully excluded. REVIEW OF SYSTEMS: Full review of systems including constitutional, head, eyes, ears, nose, throat, GI, , cardiovascular, respiratory, musculoskeletal, neurologic systems is negative except as noted in the HPI. PAST MEDICAL HISTORY: 1. Diabetes, new diagnosis. 2. Severe aortic stenosis, new diagnosis. 3. Anemia, new diagnosis. OUTPATIENT MEDICATIONS: None. INPATIENT MEDICATIONS: 1. Pantoprazole 40 mg IV q.12 hours. 2. Lasix 40 mg IV. 3. Lipitor. 4. Tylenol p.r.n. FAMILY HISTORY: His mother had some unknown malignancy. SOCIAL HISTORY: He quit smoking 30 years ago. Quit drinking 20 years ago. No drug use. PHYSICAL EXAMINATION: VITAL SIGNS: Temperature 98.1, pulse 64, blood pressure 140/68, and 99% oxygen saturation on room air. GENERAL: A 75-year-old man, lying in bed comfortably, in no distress. SKIN: He is a bit pale, no jaundice. No rashes were palpable. EYES: No scleral icterus. Extraocular movements intact. ENT: Mucous membranes moist. No oral lesions. LYMPH: No submandibular or supraclavicular lymphadenopathy. THYROID: Nontender to palpation. HEART: He has a loud systolic murmur. Regular rate and rhythm. LUNGS: Clear to auscultation bilaterally. ABDOMEN: Bowel sounds present. Soft, nontender to palpation. EXTREMITIES: No peripheral edema. NEUROLOGIC: Cranial nerves 2 through 12 intact bilaterally. No focal deficits. LABORATORY STUDIES: WBC 9.9, hemoglobin 7.4, platelets 361. INR 1.2. Glucose 144, sodium 138, potassium 4.1, BUN 23, creatinine 1.42. LFTs all normal with total bilirubin 0.4, alkaline phosphatase 73, AST 22, ALT 17. CK-MB is only 4.5. Troponin elevated to 1.709, this is downtrending over the past 3 days. Albumin 3.4. BNP is 499.5. Hemoglobin A1c is 8.1%. Urinalysis negative. COVID PCR was negative on 11/17/2020. IMAGING STUDIES: Echocardiogram from 11/18/2020, demonstrated severe aortic stenosis, ejection fraction 55% to 60%, there is diastolic dysfunction. CT of the abdomen and pelvis from 11/17/2020, demonstrated mild focal thickening in the sigmoid colon, compatible with possible mild diverticulitis versus mass lesion. There is extensive colonic diverticulosis throughout the left colon, there is cholelithiasis with no inflammatory changes, and vascular calcification in the region of the aortic valve as well as scattered atherosclerosis. ASSESSMENT AND PLAN: 1. Anemia, severe, symptomatic. This is a normocytic anemia in the context of overt intermittent bleeding over the past few months. He responded to transfusion on last admission and is getting 2 more units today. Most likely reason is gastrointestinal blood loss, but he is hemodynamically stable from this. 2. Gastrointestinal bleeding. Clinically, this sounds more like a lower gastrointestinal source intermittently; however, cannot rule out upper gastrointestinal lesion. It is possible this may be related to his diverticulosis. Neoplasm could not be excluded in the sigmoid colon based on recent CT imaging. We had a long discussion that endoscopic workup is warranted to evaluate for bleeding lesion. He expresses understanding and is willing to undergo bowel preparation this evening for anticipated EGD/colonoscopy tomorrow. 3. Severe aortic stenosis. 4. Jyl-MY-keqtipiyd myocardial infarction. This was thought to be due to demand ischemia, it is probably secondary to his severe anemia as well as aortic stenosis. Troponin is downtrending in the past few days. Cardiology re-evaluation is pending. I would like to see formal cardiac clearance prior to proceeding with endoscopy tomorrow, but we will go ahead and tentatively plan for EGD/colonoscopy tomorrow. Thank you for the consultation. Please call anytime with questions or concerns. Job ID: [id number]
--- NOTE | 2020-11-20 14:07 | PQF ---
CLINICAL DOCUMENTATION CLARIFICATION FORM: Dear PIO r* Date: 11/20/2020 8210 Please exercise your independent, professional judgment in responding to the clarification form. Clinical indicators are provided on the bottom of this form for your review. Please check appropriate box(es): [ ] Acute blood loss anemia [ ] Anemia: [ ] Aplastic [ ] Nutritional [ ] Chronic Anemia: [ ] Blood loss [ ] Hemolytic [ ] Simple [ ] Due to Vitamin B12 Deficiency [ ] Other [ ] Anemia of Chronic Disease (please specify) [ ] Anemia due to Neoplasm: [ ] Primary [ ] Secondary [ X ] Other diagnosis Acute on chronic blood loss anemia [ ] Unable to determine In addition, please specify: Present on Admission (POA): [ X ] Yes [ ] No [ ] Unable to determine For continuity of documentation, please document condition throughout progress notes and discharge summary. Thank You. To be completed by CDI/Coding staff for physician review: CLINICAL INDICATORS - SIGNS / SYMPTOMS / LABS / RESULTS AND LOCATION IN EMR Was just here for an active GI bleed, left [facility], still complaining of SOB with exertion, Final Dx: GI Bleed, Symptomatic Anemia (Ed Report) 11/19 Symptomatic anemia, pt has had worsening GONZALEZ, H/H 7.42/ 21.6, down from 8.6/24.7 after 2U PRBC during last admission( H&P / Zaldivar) 11/19 Patient has continued to have blood in his stools since leaving [facility] on 11/18, CT- a focal mass within the sigmoid colon cannot be fully excluded. (PN/Paco Macedo) 11/20/2020 RISK / RESULT AND LOCATION IN EMR GI Bleed, Symptomatic anemia ( H&P/Zaldivar) 11/19 TREATMENTS / RESULTS AND LOCATION IN EMR Transfusion x 2 Leukoreduced RBC 10/18 GI consult (Case) 11/20 Thank you! CDS Signature: Robyn Victoria RN Phone #: [phone] Date/Time. 11/20/2020 This is a permanent part of the Medical Record [facility]
[2020-11-20] MEDS ORDERED: GoLYTELY 4,000 ml Bottle PO SCH (17:00)
--- NOTE | 2020-11-20 17:41 | CON ---
DATE OF CONSULTATION: 11/20/2020 REASON FOR CONSULTATION: Recent elevated troponins. PRIMARY TEACHER OF THE DEAF: Dr. Best Garcia. HISTORY OF PRESENT ILLNESS: Mr. Arellano is a 75-year-old gentleman Qatari-speaking mostly comes to the hospital for GI bleed. He was actually admitted just a few days back with bleeding that was apparently lower GI bleed. He had a hemoglobin as low as 6.8 on admission, improved to 8.6 after transfusions. During that admission, troponins were drawn and were actually elevated up to about 5.9. Dr. Garcia evaluated him and deemed him to be demand ischemia secondary to the stress of blood loss that he has had. During that admission, he had an echocardiogram that showed normal LV function, but severe aortic stenosis with valve area of 0.6 cm2, mean gradient about 42 mmHg, and max velocity of 4.1 m/sec. He actually left against medical advice eventually as he was having continued shortness of breath and continued to see blood in his stool. Apparently, he left because he thought mostly because he had been offered to have a colonoscopy and endoscopy and he was under the impression that they were going to have to cut his abdomen open to do this. I spoke with him today. He denies any chest pain, chest tightness or pressure, only the shortness of breath that is actually better since his blood levels are better now. PAST MEDICAL HISTORY: 1. Severe aortic stenosis. 2. Type 2 diabetes. 3. Diastolic heart failure. 4. All these diagnoses were given to him on his last admission. He does not see physicians. PAST SURGICAL HISTORY: None. OUTPATIENT MEDICATIONS: None. ALLERGIES: NO KNOWN DRUG ALLERGIES. FAMILY HISTORY: Noncontributory. SOCIAL HISTORY: Former smoker, quit about 30 years ago. Former alcohol use, quit about 20 years ago. No drug use. REVIEW OF SYSTEMS: A 12-point review of systems was done and was found to be negative other than stated in the history of present illness. PHYSICAL EXAMINATION: VITAL SIGNS: Temperature 97.6, pulse 71, respiratory rate 16, saturating 99% on room air, blood pressure 150/65. GENERAL: Awake, alert, oriented x3, in no distress. HEENT: Normocephalic and atraumatic. NECK: Supple. LUNGS: Clear. CARDIOVASCULAR: S1 and S2. No S3 or S4. There is a grade 3/6 late-peaking systolic murmur at the right upper sternal border, it radiated to the rest of the precordium. ABDOMEN: Soft. Positive bowel sounds. EXTREMITIES: No edema. SKIN: Warm and dry. LABORATORY DATA: Laboratory work was reviewed. CBC with a white count of 9. Hemoglobin 7.4 on admission, up to 9.2 after transfusion. Platelet count of 361. Coags were normal. Chemistries showed normal BUN, but creatinine 1.42, back down to 1.2. GFR was 48, up to 57 now. BNP was 499. Troponin was 1.8, then 1.9, then 1.7. UA was unremarkable. EKG was reviewed. ASSESSMENT: 1. Acute blood loss anemia. 2. Type 2 World [employer] Organization type of myocardial infarction, demand ischemia. 3. Severe aortic stenosis. PLAN: 1. I spoke with Mr. Arellano at length about his situation with the aortic stenosis. Clearly, his heart is not in a situation where it can tolerate anemia that well. 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 He tells me that before any of this started, he was not having any symptoms and he feels that his heart is just fine. I told him that his heart valve was a problem that it was very tight and we may need to do surgery on his valve. A surgery that comes from the groin and not open. He tells me that he is very adamant about not having any procedures done to his heart as he has heard of people having complications with these. I told him that there is a percentage of complications with these cases; however, the risk of the surgery was a lot lower than the benefit that he would get and the natural progression of disease with aortic stenosis was eventually from it. He tells me that he is ready to go whenever he needs to go, that he does not want to have any surgical procedures to his heart. I told him that we could just do a procedure that is not surgery. He still does not want anything done to his heart. Then, I told him that he would be high risk for the procedure that is planned as far as his GI bleeding and he tells me that then we probably should fix his heart first. I told him that it is really just a complex situation where he is high risk for his GI procedure given his severe aortic stenosis and we cannot really go in and see if there is any issue with his coronary arteries as he would need some type of blood thinner and he is actively bleeding at this time. More than likely he needs to undergo endoscopies procedure, I would recommend limiting the amount of sedation as much as possible; however, he will be high risk because of his severe aortic stenosis. 2. More than likely as above, his bleeding issues are from AVMs from his severe aortic stenosis; however, this is unknown until we go in and check. He may have other things going on as well. 3. He really wants to proceed with upper and lower endoscopies what was recommended by Gastroenterology. He wishes to proceed. He is aware of the risk and is okay with this. Thank you for letting us to participate in the care of your patient complex situation at this time. Job ID: [id number]
[2020-11-20] MEDS: Atorvastatin Calcium 40 MG TAB PO SCH (20:01)
--- NOTE | 2020-11-21 07:10 | PDOC.FM ---
- Subjective Subjective: Mr. Arellano is doing well this morning and is prepared to go forth with the EGD and colonoscopy. He has also changed his mind and would like to get the heart cath done now, as well. He is concerned about signing some papers where he could transfer his house to his step-daughter's name "in case something happens during the procedure". - Objective Vital Signs & Weight: Vital Signs (12 hours) Temp Pulse Resp BP Pulse Ox 11/21/20 03:23 98.7 F 71 18 141/64 H 96 11/20/20 19:20 99.5 F 73 20 134/60 98 Weight Admit Weight 89.358 kg Weight 90.22 kg Most Recent Monitor Data Heart Rate from ECG 63 NIBP 134/65 Respiration from ECG 16 I&O: 11/19/20 11/20/20 11/21/20 06:59 06:59 06:59 Intake Total 1050 5070 Output Total 1490 1165 Balance -440 3905 Result Diagrams: 11/21/20 07:00 11/21/20 07:00 Phys Exam - Physical Examination Constitutional: NAD Neck: supple, full ROM Neurological: non-focal, moves all 4 limbs Psychiatric: normal affect, A&O x 3 Dx/Plan - Plan Plan: Patient is a 75M admitted for GI bleed after leaving A on 11/18: GI Bleed -2u pRBC transfused 11/20. 4-hr post H/H .12/06 -40mg pantoprazole IV BID -concern for malignancy given results of CT abd/pelvis, CXR, and procal of 0.04 -GI consult today, Dr. Tello. Appreciate recs * Requested cardiac clearance, see below * EGD and colonoscopy planned for today -NPO Symptomatic Anemia -patient has had worsening GONZALEZ -H/H .12/06 after transfusion on 11/20 > hgb 8.8 this am -VSS at this time -continue to monitor with am CBC HFpEF -echo 11/18: EF 55-60%, findings suggestive of diastolic dysfunction -monitor fluid status -Strict I/Os, caution with fluid resuscitation Severe Aortic Stenosis -Grade 3-4/6 murmur appreciated throughout chest and into abdomen -possibly exacerbated by anemia -echo during last admission with results as above -Consulted cardiology, Dr. Long. Appreciate recs * Recommends cath for eval/tx of aortic valve although states the risk is too great currently with his active bleed, so he would recommend performing the scopes first and performing thesein the outpt setting NSTEMI -suspect it's type 2 due to demand ischemia from symptomatic anemia -admit to tele -as patient had elevated trop on 11/17 and has since declined, in combination with GI bleed, will hold off on anticoagulation at this time -ASCVD risk: 43.8%, will start statin -cards consult, as above DM2 -A1C 8.1 -hold SSI at this time. suspect pt will not be compliant given all the medicat ion initiation and medical changes occurring this hospitalization -can consider adding daily medication after discussion with pt -no accu checks at this time CKD -Creatinine 1.42, GFR 48 c/w values on 11/17 > Cr 1.24, GFR 57 this am -unknown baseline -monitor with am BMP Dispo: Inpt tele. EGD and colonoscopy today. D/c pending GI and cards recs. Diet: NPO for likely GI procedure DVTppx: SCDs, hold off anticoagulation for possible GI bleed CODE: full PCP: Sarah after leaving [facility] Addendum - Attending - Attending Attestation Date/Time: 11/21/20 2542 I personally evaluated the patient and discussed the management with Dr. Paco Macedo. I agree with the History, Examination, Assessment and Plan documented above with any addition or exceptions noted below.
[2020-11-21 07:15] LABS: #Eosinphils 0.1 thou/uL (0.0-0.7); #Lymphocytes 0.9 thou/uL (1.20-3.40); #Monocytes 0.5 thou/uL (0.11-0.59); #Neutrophils 6.7 thou/uL (1.40-6.50); %Basophils 0.3 % (0.0-1.0); %Eosinophils 0.8 % (0.0-10.0); %Lymphocytes 10.8 % (21.0-51.0); %Monocytes 5.8 % (0.0-10.0); %Neutrophils 82.2 % (42.0-75.0); Hemoglobin 8.8 g/dL (14.0-18.0); Mean Corpuscular HGB CONC 34.2 g/dL (32.0-36.0); Mean Corpuscular Hemoglobin 30.9 pg (27.0-31.0); Mean Corpuscular Volume 90.3 fL (78.0-98.0); Mean Platelet Volume 7.3 fL (7.4-10.4); Platelet Count 305 thou/uL (130-400); RBC Distribution Width 14.1 % (11.5-14.5); Red Blood Cell (RBC) Count 2.87 mill/uL (4.70-6.10); White Blood Cell (WBC) Count 8.2 thou/uL (4.8-10.8)
[2020-11-21 07:30] LABS: Anion Gap 13 mmol/L (10-20); BUN (Urea Nitrogen) 18 mg/dL (8.4-25.7); Calc. Creatinine Clearance 68 mL/min (70-130); Calcium 7.9 mg/dL (7.8-10.44); Carbon Dioxide 29 mmol/L (23-31); Chloride 102 mmol/L (98-107); Glucose 174 mg/dL (83-110); Potassium 3.7 mmol/L (3.5-5.1); Sodium 140 mmol/L (136-145)
[2020-11-21] MEDS: Pantoprazole 40 MG VIAL IVP SCH ×2 (08:07→20:05)
[2020-11-21] MEDS: Diclofenac 1% 100 GM GEL TP SCH ×4 (08:09→20:03)
[2020-11-21] MEDS ORDERED: Ketamine 50 MG/ML (10ML VIAL) ONE (10:23)
[2020-11-21] MEDS ORDERED: Lidocaine 1% PF 5 ML VIAL ONE (13:24)
[2020-11-21] MEDS ORDERED: PROPOFOL 200 MG/20 ML VIAL ONE (13:24)
--- NOTE | 2020-11-21 13:48 | PDOC.CPN ---
- Subjective Date: 11/21/20 Time: 13:45 Interval history: He is thinking about cardiac procedures. No angina. No SOB, no syncope. - Review of Systems General: denies: fever/chills, weight/appetite/sleep changes, night sweats, fatigue Respiratory: denies: cough, congestion, shortness of breath, exercise intolerance Cardiovascular: denies: chest pain, palpitation, edema, paroxysmal nocturnal dyspnea, orthopnea Gastrointestinal: denies: nausea, vomiting, diarrhea, constipation, abd pain, GI bleeding Musculoskeletal: denies: pain, tenderness, stiffness, swelling, arthritis/arthralgias Neurological: denies: numbness, syncope, seizure, weakness - Objective Allergies/Adverse Reactions: Allergies Allergy/AdvReac Type Severity Reaction Status Date / Time No Known Drug Allergies Allergy Unverified 11/17/20 19:52 Visit Medications: Current Medications Acetaminophen (Acetaminophen 325 Mg Tab) 650 mg PO Q4H PRN PRN Reason: Headache/Fever/Mild Pain (1-3) Atorvastatin Calcium (Atorvastatin Calcium 40 Mg Tab) 40 mg PO HS [facility] Last Admin: 11/20/20 20:01 Dose: 40 mg Documented by: Dextrose/Water (Dextrose 50% Abboject 50 Ml Syringe) 25 gm SLOW IVP PRN PRN PRN Reason: Hypoglycemia Diclofenac Sodium (Diclofenac 1% 100 Gm Gel) 2 gm TP QID [facility] Last Admin: 11/21/20 13:40 Dose: 1 appful Documented by: Glucagon (Glucagon 1 Mg/Ml Vial) 1 mg IM PRN PRN PRN Reason: Hypoglycemia Dextrose/Water (D5w) 1,000 mls @ 0 mls/hr IV .Q0M PRN PRN Reason: Hypoglycemia Pantoprazole Sodium (Pantoprazole 40 Mg Vial) 40 mg IVP Q12HR [facility] Last Admin: 11/21/20 08:07 Dose: 40 mg Documented by: Sodium Chloride (Flush - Normal Saline 10 Ml Syringe) 10 ml IVF Q12HR [facility] Last Admin: 11/21/20 08:12 Dose: 10 ml Documented by: Sodium Chloride (Flush - Normal Saline 10 Ml Syringe) 10 ml IVF PRN PRN PRN Reason: Saline Flush Vital Signs & Weight: Vital Signs Temp Pulse Resp BP Pulse Ox 11/21/20 12:35 75 18 100 11/21/20 07:57 98 11/21/20 07:00 98.5 F 68 18 158/70 H 98 11/21/20 03:23 98.7 F 71 18 141/64 H 96 Admit Weight 197 lb Weight 198 lb 14.4 oz - Physical Exam General: alert & oriented x3 HEENT: mucus membranes moist Neck: supple neck Cardiac: regular rate and rhythm, systolic murmur Lungs: clear to auscultation Neuro: grossly intact Abdomen: active bowel sounds Extremities: no edema Skin: clear Musculoskeletal: no pain - Labs Result Diagrams: 11/21/20 07:00 11/21/20 07:00 Troponin/CKMB CK-MB (CK-2) 4.5 ng/mL (0-6.6) 11/19/20 19:37 Troponin I 1.709 ng/mL (< 0.028) H* 11/20/20 01:34 - Telemetry Sinus rhythms and dysrhythmias: sinus rhythm - Assessment/Plan Assessment/Plan: 1. GI bleed 2. NSTEMI, demand ischemia, type 2 NC. 3. Severer EDY 0.6, Max yassine 4.2 m/sec and mean grad 42 mmHg. PLAN: - Endoscopies for bleeding evaluation. - Once bleeding controlled and hgb stable will start work up for new aortic valve. Most likely will be done as outpatient.
[2020-11-21 17:46] VITALS: BMI 33.0
--- NOTE | 2020-11-21 18:47 | OP ---
DATE OF PROCEDURE: 11/21/2020 This is a GI endoscopy note. PHOTOENGRAVER APPRENTICE SURGEON: None. PROCEDURES: 1. Esophagogastroduodenoscopy, diagnostic. 2. Colonoscopy with snare polypectomy. INDICATIONS: 1. Anemia. 2. GI bleeding/rectal bleeding. 3. Severe aortic stenosis. MEDICATIONS: See Anesthesia record. FINDINGS: After discussion of the risks, benefits, and alternatives of the procedure, informed consent was obtained and witnessed. Pre-endoscopic cardiopulmonary examination was satisfactory. Time-out was performed before sedation was achieved. Sedation was achieved with Anesthesia assistance in the endoscopy unit. A Pentax adult upper endoscope was placed into the oropharynx and passed through the cricopharyngeus under direct visualization. The esophageal mucosa appeared normal throughout with a normal-appearing Z-line. The endoscope was advanced into the stomach. Forward and retroflexed views of the entire gastric mucosa were obtained. The gastric mucosa appeared normal throughout. The endoscope was advanced through the pylorus and into the first and second portions of the duodenum, which also appeared normal. The upper endoscope was completely withdrawn and the patient was repositioned. Digital rectal exam was performed. The patient has some scar tissue around the anal area with some skin tags consistent with external hemorrhoidal skin tags. Digital rectal exam was performed and the internal hemorrhoidal cushions were palpated. A Pentax adult colonoscope was inserted into the anus and passed forward to the cecum in the usual fashion. The cecal base was identified by the appendiceal orifice as well as the ileocecal valve. The terminal ileum was intubated and the ileal mucosa appeared normal. The colonoscope was slowly withdrawn in a gradual and circumferential manner with careful examination of the entire colonic mucosa. The quality of the prep was good. There was diffuse diverticulosis throughout the colon, which is particularly heavy in the sigmoid colon and the descending colon. There was no evidence of any old blood or active bleeding throughout the colon. No bleeding lesions identified. There was a single colon polyp measuring about 4 mm in diameter in the transverse colon, which was completely removed with cold snare and retrieved for pathology. Retroflexion in the rectum demonstrated medium to large internal hemorrhoids. The colonoscope was completely withdrawn and the patient allowed to recover. The patient tolerated the procedure well. There were no immediate postprocedure complications. IMPRESSION: 1. Normal esophagogastroduodenoscopy. 2. Diffuse colonic diverticulosis with no evidence of diverticulitis. 3. Internal and external hemorrhoids. 4. Otherwise, normal colonoscopy to the terminal ileum. RECOMMENDATIONS: 1. Advance diet. 2. Follow up pathology on the colon polyp. 3. Iron supplementation. 4. Continue with cardiac workup. GI will sign off. Please call back anytime with questions or concerns. Job ID: [id number]
[2020-11-21] MEDS: Atorvastatin Calcium 40 MG TAB PO SCH (20:05)
[2020-11-22 03:56] LABS: #Eosinphils 0.2 thou/uL (0.0-0.7); #Lymphocytes 1.2 thou/uL (1.20-3.40); #Monocytes 0.5 thou/uL (0.11-0.59); #Neutrophils 6.4 thou/uL (1.40-6.50); %Basophils 0.5 % (0.0-1.0); %Eosinophils 2.4 % (0.0-10.0); %Lymphocytes 14.1 % (21.0-51.0); %Monocytes 6.1 % (0.0-10.0); %Neutrophils 76.8 % (42.0-75.0); Hemoglobin 8.6 g/dL (14.0-18.0); Mean Corpuscular Hemoglobin 30.4 pg (27.0-31.0); Mean Corpuscular Volume 92.1 fL (78.0-98.0); Mean Platelet Volume 7.8 fL (7.4-10.4); Platelet Count 296 thou/uL (130-400); RBC Distribution Width 14.4 % (11.5-14.5); Red Blood Cell (RBC) Count 2.82 mill/uL (4.70-6.10); White Blood Cell (WBC) Count 8.3 thou/uL (4.8-10.8)
[2020-11-22 04:15] LABS: Anion Gap 12 mmol/L (10-20); BUN (Urea Nitrogen) 17 mg/dL (8.4-25.7); Calc. Creatinine Clearance 69 mL/min (70-130); Calcium 7.6 mg/dL (7.8-10.44); Carbon Dioxide 26 mmol/L (23-31); Chloride 104 mmol/L (98-107); Glucose 163 mg/dL (83-110); Potassium 3.8 mmol/L (3.5-5.1); Sodium 138 mmol/L (136-145)
--- NOTE | 2020-11-22 07:07 | PDOC.FM ---
- Subjective Subjective: Patient denies CP or SOB today. He is eager to go home. - Objective Vital Signs & Weight: Vital Signs (12 hours) Temp Pulse Resp BP Pulse Ox 11/22/20 03:58 98.7 F 66 20 139/63 97 11/21/20 20:00 97 Weight Admit Weight 89.358 kg Weight 90.22 kg Most Recent Monitor Data Heart Rate from ECG 63 NIBP 134/65 Respiration from ECG 16 I&O: 11/21/20 11/22/20 11/23/20 06:59 06:59 06:59 Intake Total 5070 Output Total 1165 Balance 3905 Result Diagrams: 11/22/20 03:11 11/22/20 03:11 EKG Reviewed by me: Yes (tele: SR 60s) Phys Exam - Physical Examination Constitutional: NAD HEENT: moist MMs, sclera anicteric Neck: no nodes Respiratory: no wheezing, no rales, no rhonchi, clear to auscultation bilateral Cardiovascular: RRR, no significant murmur Gastrointestinal: soft, non-tender Musculoskeletal: no edema, pulses present Neurological: non-focal Lymphatic: no nodes Psychiatric: normal affect Skin: no rash Dx/Plan - Plan Plan: Patient is a 75M admitted for GI bleed after leaving AMA on 11/18: GI Bleed -2u pRBC transfused 11/20. 4-hr post H/H .12/06. 8.04/04 today -40mg pantoprazole IV BID -concern for malignancy given results of CT abd/pelvis, CXR, and procal of 0.04 -GI consult today, Dr. Tello. Appreciate recs * Normal EGD * Diverticulosis, external and internal hemorrhoids and polyp on transverse colon that was removed. Path pending. No signs of bleed. * GI has signed off Symptomatic Anemia -patient has had worsening GONZALEZ -H/H .12/06 after transfusion on 11/20 > Hgb 8.6 this AM. -VSS at this time -continue to monitor with am CBC HFpEF -echo 11/18: EF 55-60%, findings suggestive of diastolic dysfunction -monitor fluid status -Strict I/Os, caution with fluid resuscitation Severe Aortic Stenosis -Grade 3-4/6 murmur appreciated throughout chest and into abdomen -possibly exacerbated by anemia -echo during last admission with results as above -Consulted cardiology, Dr. Long. Appreciate recs * Await recommendations following results of EGD and Colonoscopy. May discharge today if still desires outpatient workup. NSTEMI -suspect it's type 2 due to demand ischemia from symptomatic anemia -admit to tele -as patient had elevated trop on 11/17 and has since declined, in combination with GI bleed, will hold off on anticoagulation at this time -ASCVD risk: 43.8%, will start statin -cards consult, as above DM2 -A1C 8.1 -hold SSI at this time. suspect pt will not be compliant given all the medication initiation and medical changes occurring this hospitalization -can consider adding daily medication after discussion with pt -no accu checks at this time CKD -Creatinine 1.42, GFR 48 c/w values on 11/17 > Cr 1.14 this am -unknown baseline -monitor with am BMP Dispo: D/C pending Zain recs today. Diet: NPO for likely GI procedure DVTppx: SCDs, hold off anticoagulation for possible GI bleed CODE: full PCP: CC-ilsa after leaving AMA
[2020-11-22] MEDS ORDERED: hydrALAZINE 20 MG/ML VIAL SLOW IVP PRN (08:32)
[2020-11-22] MEDS: Diclofenac 1% 100 GM GEL TP SCH ×4 (09:32→21:07)
[2020-11-22] MEDS: Pantoprazole 40 MG VIAL IVP SCH (09:33)
--- NOTE | 2020-11-22 11:34 | PRG ---
DATE OF SERVICE: 11/22/2020 Please see the note from Dr. Cameron Lind, for which I agree. The patient was scoped yesterday for the anemia and was given 2 units of blood. It sounds like all he really found was hemorrhoids. We are working up his aortic stenosis and we are waiting to see what Cardiology says as far as they can do as an outpatient or an inpatient because otherwise he is stable and can go home. Chest is clear. Regular rate and rhythm. Abdomen is benign. So, plan is basically going to be on what Cardiology wants to do. Job ID: [id number]
--- NOTE | 2020-11-22 14:57 | PDOC.CPN ---
- Subjective Date: 11/22/20 Time: 14:56 - Review of Systems General: denies: fever/chills, weight/appetite/sleep changes, night sweats, fatigue Respiratory: denies: cough, congestion, shortness of breath, exercise intolerance Cardiovascular: denies: chest pain, palpitation, edema, paroxysmal nocturnal dyspnea, orthopnea Gastrointestinal: denies: nausea, vomiting, diarrhea, constipation, abd pain, GI bleeding Musculoskeletal: denies: pain, tenderness, stiffness, swelling, arthriti s/arthralgias Neurological: denies: numbness, syncope, seizure, weakness - Objective Allergies/Adverse Reactions: Allergies Allergy/AdvReac Type Severity Reaction Status Date / Time No Known Drug Allergies Allergy Unverified 11/17/20 19:52 Visit Medications: Current Medications Acetaminophen (Acetaminophen 325 Mg Tab) 650 mg PO Q4H PRN PRN Reason: Headache/Fever/Mild Pain (1-3) Atorvastatin Calcium (Atorvastatin Calcium 40 Mg Tab) 40 mg PO HS [facility] Last Admin: 11/21/20 20:05 Dose: 40 mg Documented by: Dextrose/Water (Dextrose 50% Abboject 50 Ml Syringe) 25 gm SLOW IVP PRN PRN PRN Reason: Hypoglycemia Diclofenac Sodium (Diclofenac 1% 100 Gm Gel) 2 gm TP QID [facility] Last Admin: 11/22/20 12:33 Dose: 1 appful Documented by: Ferrous Sulfate (Ferrous Sulfate 325 Mg Tab) 325 mg PO QAM-WM [facility] Glucagon (Glucagon 1 Mg/Ml Vial) 1 mg IM PRN PRN PRN Reason: Hypoglycemia Hydralazine HCl (Hydralazine 20 Mg/Ml Vial) 10 mg SLOW IVP Q4H PRN PRN Reason: SBP Greater Than 180 Last Admin: 11/22/20 09:34 Dose: 10 mg Documented by: Dextrose/Water (D5w) 1,000 mls @ 0 mls/hr IV .Q0M PRN PRN Reason: Hypoglycemia Pantoprazole Sodium (Pantoprazole 40 Mg Vial) 40 mg IVP Q12HR [facility] Last Admin: 11/22/20 09:33 Dose: 40 mg Documented by: Sodium Chloride (Flush - Normal Saline 10 Ml Syringe) 10 ml IVF Q12HR [facility] Last Admin: 11/22/20 09:34 Dose: 10 ml Documented by: Sodium Chloride (Flush - Normal Saline 10 Ml Syringe) 10 ml IVF PRN PRN PRN Reason: Saline Flush Vital Signs & Weight: Vital Signs Temp Pulse Resp BP Pulse Ox 11/22/20 08:00 99.0 F 62 16 189/86 H 97 11/22/20 03:58 98.7 F 66 20 139/63 97 Admit Weight 197 lb Weight 198 lb 14.4 oz - Physical Exam HEENT: normocephaly Neck: supple neck, no JVD/HJR Cardiac: regular rate and rhythm, systolic murmur Lungs: clear to auscultation, no wheeze, rales, rhonchi Neuro: cranial nerve 2-12 intact Abdomen: unremarkable Extremities: no edema Skin: clear Musculoskeletal: normal range of motion - Labs Result Diagrams: 11/22/20 03:11 11/22/20 03:11 Troponin/CKMB CK-MB (CK-2) 4.5 ng/mL (0-6.6) 11/19/20 19:37 Troponin I 1.709 ng/mL (< 0.028) H* 11/20/20 01:34 - Telemetry Sinus rhythms and dysrhythmias: sinus rhythm - Assessment/Plan Assessment/Plan: 1. GI bleed 2. NSTEMI, demand ischemia, type 2 UT. 3. Severer EDY 0.6, Max yassine 4.2 m/sec and mean grad 42 mmHg. I spoke with the pt. today via an business analytics analyst. He says he doesn't remember anything about a heart problem. I explained to him about the AV and said that once the Hgb. is stable then he will need to undergo a cardiac cath to eval. the coronaries and the AV. He was uncertain about any of this and just wanted to know how long he has to stay in the hospital He does not appear very symptomatic with the a/A at this time and would need a stable Hgb. before cardiac workup. Once the Hgb. is stable, he can be d/c'd and follow up with Dr. anthony for further eval.
[2020-11-22] MEDS: Atorvastatin Calcium 40 MG TAB PO SCH (21:01)
[2020-11-23 04:01] LABS: #Eosinphils 0.3 thou/uL (0.0-0.7); #Monocytes 0.5 thou/uL (0.11-0.59); #Neutrophils 5.9 thou/uL (1.40-6.50); %Basophils 0.6 % (0.0-1.0); %Eosinophils 3.3 % (0.0-10.0); %Lymphocytes 12.5 % (21.0-51.0); %Monocytes 6.2 % (0.0-10.0); %Neutrophils 77.3 % (42.0-75.0); Hemoglobin 8.4 g/dL (14.0-18.0); Mean Corpuscular HGB CONC 33.3 g/dL (32.0-36.0); Mean Corpuscular Hemoglobin 30.8 pg (27.0-31.0); Mean Corpuscular Volume 92.7 fL (78.0-98.0); Mean Platelet Volume 7.9 fL (7.4-10.4); Platelet Count 307 thou/uL (130-400); RBC Distribution Width 14.1 % (11.5-14.5); Red Blood Cell (RBC) Count 2.73 mill/uL (4.70-6.10); White Blood Cell (WBC) Count 7.7 thou/uL (4.8-10.8)
[2020-11-23 04:14] LABS: Anion Gap 12 mmol/L (10-20); BUN (Urea Nitrogen) 18 mg/dL (8.4-25.7); Calc. Creatinine Clearance 71 mL/min (70-130); Calcium 7.8 mg/dL (7.8-10.44); Carbon Dioxide 25 mmol/L (23-31); Chloride 105 mmol/L (98-107); Glucose 159 mg/dL (83-110); Potassium 4.4 mmol/L (3.5-5.1); Sodium 138 mmol/L (136-145)
--- NOTE | 2020-11-23 07:06 | PDOC.FM ---
- Objective Vital Signs & Weight: Vital Signs (12 hours) Temp Pulse Resp BP Pulse Ox 11/23/20 03:23 98.1 F 77 20 154/70 H 98 11/22/20 23:50 68 20 139/74 11/22/20 20:00 98.3 F 64 20 112/59 L 97 Weight Admit Weight 89.358 kg Weight 88.178 kg Most Recent Monitor Data Heart Rate from ECG 63 NIBP 134/65 Respiration from ECG 16 I&O: 11/22/20 11/23/20 11/24/20 06:59 06:59 06:59 Intake Total 1530 Output Total 350 Balance 1180 Result Diagrams: 11/23/20 03:09 11/23/20 03:09 Dx/Plan - Plan Plan: Patient is a 75M admitted for GI bleed after leaving AMA on 11/18: GI Bleed -2u pRBC transfused 11/20. 4-hr post H/H .12/06. 8.04/04 today -40mg pantoprazole IV BID -concern for malignancy given results of CT abd/pelvis, CXR, and procal of 0.04 -GI consult today, Dr. Tello. Appreciate recs * Normal EGD * Diverticulosis, external and internal hemorrhoids and polyp on transverse colon that was removed. Path pending. No signs of bleed. * GI has signed off Symptomatic Anemia -patient has had worsening GONZALEZ -H/H .12/06 after transfusion on 11/20 > Hgb 8.6 this AM. -VSS at this time -continue to monitor with am CBC HFpEF -echo 11/18: EF 55-60%, findings suggestive of diastolic dysfunction -monitor fluid status -Strict I/Os, caution with fluid resuscitation Severe Aortic Stenosis -Grade 3-4/6 murmur appreciated throughout chest and into abdomen -possibly exacerbated by anemia -echo during last admission with results as above -Consulted cardiology, Dr. Long. Appreciate recs * Await recommendations following results of EGD and Colonoscopy. May discharge today if still desires outpatient workup. NSTEMI -suspect it's type 2 due to demand ischemia from symptomatic anemia -admit to tele -as patient had elevated trop on 11/17 and has since declined, in combination with GI bleed, will hold off on anticoagulation at this time -ASCVD risk: 43.8%, will start statin -cards consult, as above DM2 -A1C 8.1 -hold SSI at this time. suspect pt will not be compliant given all the medication initiation and medical changes occurring this hospitalization -can consider adding daily medication after discussion with pt -no accu checks at this time CKD -Creatinine 1.42, GFR 48 c/w values on 11/17 > Cr 1.14 this am -unknown baseline -monitor with am BMP Dispo: D/C pending Zain recs today. Diet: NPO for likely GI procedure DVTppx: SCDs, hold off anticoagulation for possible GI bleed CODE: full PCP: Sarah after leaving AMA
[2020-11-23] MEDS ORDERED: Ferrous Sulfate 325 MG TAB PO SCH ×2 (08:00)
[2020-11-23] MEDS: Diclofenac 1% 100 GM GEL TP SCH ×2 (08:30→11:51)
[2020-11-23 12:23] VITALS: BP 165/73; TEMP 98.4
--- NOTE | 2020-11-25 00:01 | PQF ---
CLINICAL DOCUMENTATION CLARIFICATION FORM: Dear : Miguel Angel Chaves Date / Time: 11/25/2020 0000 Please exercise your independent, professional judgment in responding to the clarification form. Clinical indicators are provided on the bottom of this form for your review In y our clinical opinion based on clinical findings below, can you please identify the etiology of GI bleed if due to: Please check appropriate box(es): [ ] Diverticulosis [ ] Colon Polyp [ ] Internal Hemorrhoids [ ] External Hemorrhoids [ ] Other diagnosis, please specify: [ ] Unable to determine Physician Signature: Date/Time: For continuity of documentation, please document condition throughout progress notes and discharge summary. Thank You To be completed by CDI/Coding staff for physician review: Present Clinical Indicators - Signs / Symptoms / Labs Results and Location in Medical Record [x] RBC 2.39, Hgb 7.4, Hct 21.6 Laboratory 11/19 [x] BP 100/62, Pulse 78, Resp 18, Temp 98.3 Vital signs 11/19 [x] Admitted for GI bleed H&P p1 11/19 Dr Zaldivar [x] Small nadeem of blood in his stool H&P p1 11/19 Dr Zaldiavr [x] GI bleed sound more like a lower GI source Consult Case 11/20 [x] Diverticulosis, Transverse colon polyp, Internal and external hemorrhoids Operative report 11/21 Dr Tello Present Risk Factors Results and Location in Medical Record [x] 75 year-old Male H&P p1 11/19 Dr Zaldivar [x] DM H&P p1 11/19 Dr Zaldivar [x] Former smoker H&P p1 11/19 Dr Zaldivar [x] Symptomatic Anemia H&P p3 11/19 Dr Zaldivar [x] Diverticulosis Operative report 11/21 Case [x] Colon polyps Operative report 11/21 Case [x] Internal hemorrhoids Operative report 11/21 Case [x] External hemorrhoids Operative report 11/21 Dr Tello Present Treatments Results and Location in Medical Record [x] IV Protonix 40 mg MAR 11/20 [x] IVF NS 1L MAR 11/20 [x] PRBC Blood bank 11/20 [x] GE Consult Consult Dr Tello 11/20 [x] EGD Operative report 11/21 Dr Tello [x] Colonosopy with Polypectomy Operative report 11/21 Dr Tello CDS/Direct Mail Marketer Signature: Nisha Flores Phone #: ext [phone] Date/Time: 11/25/20 0000 This is a permanent part of the Medical Record [facility]
--- NOTE | 2020-11-27 15:21 | DIS ---
DATE OF ADMISSION: 11/19/2020 DATE OF DISCHARGE: 11/23/2020 RESIDENT: Cameron Lind MD ADMITTING ATTENDING: Edgar Stovall MD DISCHARGE ATTENDING: Ash Chaves MD CONSULTS: Hema Long, Martín Tello and Speech. PROCEDURES: The patient underwent colonoscopy and endoscopy on November 21, 2020. PRIMARY DIAGNOSES: 1. GI bleed. 2. Symptomatic anemia. 3. Heart failure with preserved ejection fraction. 4. Severe aortic stenosis. 5. NSTEMI. 6. Diabetes type 2. SECONDARY DIAGNOSIS: Chronic kidney disease. DISCHARGE MEDICATIONS: 1. Atorvastatin 40 mg p.o. at night. 2. Diclofenac TID. 3. Pantoprazole 40 mg p.o. b.i.d. 4. Ferrous sulfate 325 mg p.o. b.i.d. with meals. DISCONTINUED MEDICATIONS: None. HISTORY OF PRESENT ILLNESS AND HOSPITAL COURSE: Mr. Adan Puente is a 75-year-old male, who was recently admitted for GI bleed and NSTEMI and left AMA and returned to the ED for continued dyspnea on exertion and small amount of blood in his stool. Continues to deny chest pain. Reports of AMA because he was afraid that he is going to need surgery. Verbalized he needed help and agreed to be admitted. The patient was transfused 2 units of packed red blood cells and four hour post H and H were 9.2 and 27. On the day of discharge, it was 8.6 and 26. GI was consulted and Dr. Tello performed an EGD and a colonoscopy, which revealed diverticulosis, external and internal hemorrhoids, and a polyp on transverse colon that was removed. GI recommended continuing twice a day PPI as well as iron. Echo performed on November 18 revealed an ejection fraction of 55% to 60% with findings suggestive of diastolic dysfunction as well as severe aortic stenosis with grade 3 to 4/[address] Long with Cardiology was consulted and recommended outpatient workup for possible TAVR in the future. The patient's GI bleed workup was completed and he was discharged home with instructions to follow up with Cardiology for aortic stenosis workup. DISPOSITION: Stable. DISCHARGE INSTRUCTIONS: 1. Location: Home. 2. Diet: Heart healthy. 3. Activity: As tolerated. 4. Followup: Follow up with Dr. Long for outpatient workup for severe aortic stenosis. Follow up with primary care doctor in 1 to 2 weeks. Job ID: [id number] MTDD
--- NOTE | 2020-11-29 18:12 | EKG ---
Test Reason : Blood Pressure : / mmHG Vent. Rate : 069 BPM Atrial Rate : 069 BPM P-R Int : 138 ms QRS Dur : 094 ms QT Int : 414 ms P-R-T Axes : 017 -18 070 degrees QTc Int : 443 ms Normal sinus rhythm Nonspecific ST and T wave abnormality Abnormal ECG Confirmed by KRUPA Flores, JIN ([id number]), advertising editor SADIA RODRIGUEZ ([id number]) on 11/29/2020 6:12:03 PM Referred By: Confirmed By:JIN GENTILE M.D.
== END 2020-11-23 15:35 | disposition home or self-care (01) | DRG 377 ==
LOC: ERS 19:18 → 2NO 21:28
PROVIDERS: ADMIT Family Medicine; ATTEND Family Medicine
PROC: 30233N1 Transfusion of Nonautologous Red Blood Cells into Peripheral Vein, Percutaneous Approach (ICD-10-PCS; 2020-11-20)
PROC: 0DBL8ZZ Excision of Transverse Colon, Via Natural or Artificial Opening Endoscopic (ICD-10-PCS; principal; 2020-11-21)
PROC: 0DJ08ZZ Inspection of Upper Intestinal Tract, Via Natural or Artificial Opening Endoscopic (ICD-10-PCS; 2020-11-21)
DX: K92.1 Melena (principal); I21.A1 Myocardial infarction type 2; I50.32 Chronic diastolic (congestive) heart failure; D62 Acute posthemorrhagic anemia; I35.0 Nonrheumatic aortic (valve) stenosis; N18.9 Chronic kidney disease, unspecified; E11.22 Type 2 diabetes mellitus with diabetic chronic kidney disease; K63.5 Polyp of colon; K64.4 Residual hemorrhoidal skin tags; K64.8 Other hemorrhoids; K57.30 Diverticulosis of large intestine without perforation or abscess without bleeding; Z80.9 Family history of malignant neoplasm, unspecified; Z87.891 Personal history of nicotine dependence
CPT/HCPCS: 36415; 36416; 36430; 80048; 80053; 81003; 82553; 83880; 84484; 85025; 85610; 86850; 86900; 86901; 88305; 93005; C9113; J0360; J1940; J2704; P9016

== ENCOUNTER 2021-12-07 21:09 | Inpatient (IN) | payer MEDICARE ==
[2021-12-08] MEDS ORDERED: Ondansetron PF 4 MG/2 ML Vial IVP PRN (02:25)
[2021-12-08] MEDS ORDERED: Ondansetron ODT 4 MG TAB PO PRN (02:25)
[2021-12-08] MEDS ORDERED: Acetaminophen 650 MG Suppository PR PRN (02:25)
[2021-12-08] MEDS ORDERED: Acetaminophen 325 MG TAB PO PRN (02:25)
[2021-12-08] MEDS ORDERED: Dextrose 50% Abboject 50 ML SYRINGE SLOW IVP PRN (02:59)
[2021-12-08] MEDS ORDERED: Dextrose 5% in Water 1,000 ML IV PRN (02:59)
[2021-12-08] MEDS ORDERED: HumaLOG 300 UNITS/3 ML VIAL SC PRN ×2 (02:59)
[2021-12-08] MEDS ORDERED: Magnesium 2 GM/50 ML 2 GM in Premix Bag 1 BAG IVPB SCH (03:30)
[2021-12-08 05:48] LABS: #Eosinphils 0.3 thou/uL (0.0-0.7); #Monocytes 0.5 thou/uL (0.11-0.59); #Neutrophils 5.8 thou/uL (1.40-6.50); %Basophils 0.3 % (0.0-1.0); %Eosinophils 4.4 % (0.0-10.0); %Lymphocytes 12.6 % (21.0-51.0); %Monocytes 6.2 % (0.0-10.0); %Neutrophils 76.5 % (42.0-75.0); Hemoglobin 11.6 g/dL (14.0-18.0); Mean Corpuscular HGB CONC 31.7 g/dL (32.0-36.0); Mean Corpuscular Hemoglobin 30.2 pg (27.0-31.0); Mean Corpuscular Volume 95.4 fL (78.0-98.0); Mean Platelet Volume 8.1 fL (7.4-10.4); Platelet Count 225 thou/uL (130-400); RBC Distribution Width 13.8 % (11.5-14.5); Red Blood Cell (RBC) Count 3.84 mill/uL (4.70-6.10); White Blood Cell (WBC) Count 7.5 thou/uL (4.8-10.8)
[2021-12-08 06:08] LABS: Anion Gap 14 mmol/L (10-20); BUN (Urea Nitrogen) 22 mg/dL (8.4-25.7); Calc. Creatinine Clearance 70 mL/min (70-130); Calcium 8.5 mg/dL (7.8-10.44); Carbon Dioxide 23 mmol/L (23-31); Chloride 105 mmol/L (98-107); Glucose 114 mg/dL (83-110); Potassium 4.1 mmol/L (3.5-5.1); Sodium 138 mmol/L (136-145)
[2021-12-08] MEDS: Furosemide 40 MG/4 ML VIAL SLOW IVP SCH (09:29)
[2021-12-08] MEDS: Enoxaparin Sodium 40 MG/0.4 ML SYRINGE SC SCH (09:29)
[2021-12-09 05:15] VITALS: BMI 37.2
[2021-12-09] MEDS: Enoxaparin Sodium 40 MG/0.4 ML SYRINGE SC SCH (07:55)
[2021-12-09] MEDS: Furosemide 40 MG/4 ML VIAL SLOW IVP SCH (07:55)
[2021-12-09 13:18] LABS: Anion Gap 12 mmol/L (10-20); BUN (Urea Nitrogen) 27 mg/dL (8.4-25.7); Calc. Creatinine Clearance 61 mL/min (70-130); Calcium 8.8 mg/dL (7.8-10.44); Carbon Dioxide 29 mmol/L (23-31); Chloride 100 mmol/L (98-107); Glucose 215 mg/dL (83-110); Potassium 4.2 mmol/L (3.5-5.1); Sodium 137 mmol/L (136-145)
[2021-12-09 16:15] VITALS: BP 127/85; TEMP 97.9
== END 2021-12-09 20:40 | disposition short-term general hospital (02) | DRG 291 ==
LOC: NEURO 21:09
PROVIDERS: ADMIT Student in an Organized Health Care Education/Training Program; ATTEND Family Medicine
DX: I11.0 Hypertensive heart disease with heart failure (principal); I50.43 Acute on chronic combined systolic (congestive) and diastolic (congestive) heart failure; N17.9 Acute kidney failure, unspecified; I35.0 Nonrheumatic aortic (valve) stenosis; I42.9 Cardiomyopathy, unspecified; Z20.822 Contact with and (suspected) exposure to COVID-19; Z23 Encounter for immunization; E11.9 Type 2 diabetes mellitus without complications; D64.9 Anemia, unspecified; H54.40 Blindness, one eye, unspecified eye; Z87.891 Personal history of nicotine dependence; I25.2 Old myocardial infarction
CPT/HCPCS: 36415; 36416; 80048; 85025; 93306; J1650; J1940; J3475

== ENCOUNTER 2023-01-18 18:53 | Inpatient (IN) | payer MEDICARE, MEDICAID ==
[2023-01-18] MEDS ORDERED: Senokot S 8.6-50 MG TAB PO PRN (22:29)
[2023-01-18] MEDS ORDERED: Ondansetron ODT 4 MG TAB PO PRN (22:29)
[2023-01-18] MEDS ORDERED: Ondansetron PF 4 MG/2 ML Vial IVP PRN (22:29)
[2023-01-18] MEDS ORDERED: Furosemide 40 MG/4 ML VIAL SLOW IVP SCH (22:30)
[2023-01-18] MEDS ORDERED: HumaLOG 300 UNITS/3 ML VIAL SC PRN (22:50)
[2023-01-18] MEDS ORDERED: Dextrose 5% in Water 1,000 ML IV PRN (22:50)
[2023-01-18] MEDS ORDERED: Dextrose 50% Abboject 50 ML SYRINGE SLOW IVP PRN (22:50)
[2023-01-19 01:17] LABS: Troponin I 0.074 ng/mL (< 0.028)
[2023-01-19] MEDS: Furosemide 20 MG/2 ML VIAL SLOW IVP SCH ×2 (05:22→16:07)
[2023-01-19 06:00] LABS: Hemoglobin A1c 6.4 % (4.0-6.0)
[2023-01-19 06:08] LABS: #Eosinphils 0.3 thou/uL (0.0-0.7); #Lymphocytes 0.6 thou/uL (1.20-3.40); #Neutrophils 10.3 thou/uL (1.40-6.50); %Basophils 0.1 % (0.0-1.0); %Eosinophils 2.2 % (0.0-10.0); %Lymphocytes 5.1 % (21.0-51.0); %Monocytes 8.1 % (0.0-10.0); %Neutrophils 84.6 % (42.0-75.0); Hemoglobin 13.8 g/dL (14.0-18.0); Mean Corpuscular HGB CONC 32.3 g/dL (32.0-36.0); Mean Corpuscular Hemoglobin 30.4 pg (27.0-31.0); Mean Corpuscular Volume 93.9 fl (78.0-98.0); Mean Platelet Volume 8.3 fL (7.4-10.4); Platelet Count 254 10x3/uL (130-400); RBC Distribution Width 13.8 % (11.5-14.5); Red Blood Cell (RBC) Count 4.56 mill/uL (4.70-6.10); White Blood Cell (WBC) Count 12.2 10x3/uL (4.8-10.8)
[2023-01-19 06:11] LABS: ALT (SGPT) 262 U/L (8-55); AST (SGOT) 90 U/L (5-34); Albumin 3.2 g/dL (3.4-4.8); Alkaline Phosphatase 109 U/L (40-110); Anion Gap 15 mmol/L (10-20); BUN (Urea Nitrogen) 49 mg/dL (8.4-25.7); Bilirubin, Total 1.1 mg/dL (0.2-1.2); Calc. Creatinine Clearance 66 mL/min (70-130); Calcium 8.5 mg/dL (7.8-10.44); Carbon Dioxide 21 mmol/L (23-31); Chloride 105 mmol/L (98-107); Estimated GFR 52; Globulin 2.5 g/dL (2.4-3.5); Glucose 124 mg/dL (83-110); Magnesium 2.1 mg/dL (1.6-2.6); Potassium 4.3 mmol/L (3.5-5.1); Protein, Total 5.7 g/dL (5.8-8.1); Sodium 137 mmol/L (136-145)
[2023-01-19 06:12] LABS: Troponin I 0.089 ng/mL (< 0.028)
[2023-01-19] MEDS ORDERED: Spironolactone 25 MG TAB PO SCH (10:30)
[2023-01-19 16:29] LABS: Bacteria/HPF None Seen HPF (None Seen); Bilirubin Negative (Negative); Blood, Urine Negative (Negative); CAUTI Indications for Culture Dysuria,urgency,freq; Clarity Clear (Clear); Glucose, Urine (Dipstick) Normal (Negative); Ketone, Urine Negative (Negative); Leukocyte Negative Leu/uL (Negative); Nitrite Negative (Negative); Protein, Urine (Dipstick) Negative (Neg-Trace); RBC/HPF 0-3 HPF (0-3); Specific Gravity, Urine 1.012 (1.002-1.036); Squamous Epithelial None Seen HPF (0-3); Urobilinogen Normal mg/dL (Less than 2); WBC/HPF 0-3 HPF (0-3)
[2023-01-19 16:30] LABS: Urine Culture Reflex No No
[2023-01-19 16:51] LABS: Creatinine, Urine 40.64 mg/dL (63-166); Protein, Urine Random Quant Less than 10 mg/dL (1-14); Sodium, Urine 71 mmol/L (Not Available); Urea Nitrogen, Random Urine 571 mg/dl
[2023-01-19] MEDS: Carvedilol 3.125 MG TAB PO SCH (21:32)
[2023-01-20 05:06] LABS: #Eosinphils 0.3 thou/uL (0.0-0.7); #Lymphocytes 0.6 thou/uL (1.20-3.40); #Monocytes 0.7 thou/uL (0.11-0.59); #Neutrophils 6.8 thou/uL (1.40-6.50); %Basophils 0.1 % (0.0-1.0); %Eosinophils 3.9 % (0.0-10.0); %Lymphocytes 6.8 % (21.0-51.0); %Monocytes 7.9 % (0.0-10.0); %Neutrophils 81.3 % (42.0-75.0); Hemoglobin 12.2 g/dL (14.0-18.0); Mean Corpuscular HGB CONC 31.1 g/dL (32.0-36.0); Mean Corpuscular Hemoglobin 29.5 pg (27.0-31.0); Mean Corpuscular Volume 94.8 fl (78.0-98.0); Mean Platelet Volume 8.2 fL (7.4-10.4); Platelet Count 237 10x3/uL (130-400); RBC Distribution Width 13.7 % (11.5-14.5); Red Blood Cell (RBC) Count 4.13 mill/uL (4.70-6.10); White Blood Cell (WBC) Count 8.4 10x3/uL (4.8-10.8)
[2023-01-20 05:24] LABS: ALT (SGPT) 188 U/L (8-55); AST (SGOT) 61 U/L (5-34); Albumin 3.1 g/dL (3.4-4.8); Alkaline Phosphatase 97 U/L (40-110); Anion Gap 13 mmol/L (10-20); BUN (Urea Nitrogen) 44 mg/dL (8.4-25.7); Bilirubin, Total 0.9 mg/dL (0.2-1.2); Calc. Creatinine Clearance 68 mL/min (70-130); Calcium 8.2 mg/dL (7.8-10.44); Carbon Dioxide 24 mmol/L (23-31); Chloride 104 mmol/L (98-107); Estimated GFR 55; Globulin 2.4 g/dL (2.4-3.5); Glucose 126 mg/dL (83-110); Potassium 3.9 mmol/L (3.5-5.1); Protein, Total 5.5 g/dL (5.8-8.1); Sodium 137 mmol/L (136-145)
[2023-01-20] MEDS: Furosemide 20 MG/2 ML VIAL SLOW IVP SCH (05:29)
[2023-01-20] MEDS: Acetaminophen 325 MG TAB PO PRN (07:03)
[2023-01-20] MEDS ORDERED: Spironolactone 25 MG TAB PO SCH (08:00)
[2023-01-20] MEDS ORDERED: Metolazone 2.5 MG TAB PO SCH (09:45)
[2023-01-20] MEDS ORDERED: Spironolactone 100 MG TAB PO SCH (09:45)
[2023-01-20] MEDS: Carvedilol 3.125 MG TAB PO SCH ×2 (10:35→20:18)
[2023-01-20] MEDS: Aspirin 81 mg Enteric Coated Tablet PO SCH (10:35)
[2023-01-20 13:10] VITALS: BMI 38.6
[2023-01-20] MEDS: Furosemide 40 MG/4 ML VIAL SLOW IVP SCH (14:14)
[2023-01-20] MEDS: Albumin 25% 25 GM/100 ML BOT IVPB SCH ×2 (16:55→21:57)
[2023-01-20] MEDS: HumaLOG 300 UNITS/3 ML VIAL SC PRN (17:27)
[2023-01-20] MEDS: traZODone HCl 50 MG TAB PO SCH ×2 (22:24→22:48)
[2023-01-21] MEDS: Albumin 25% 25 GM/100 ML BOT IVPB SCH ×2 (03:52→10:14)
[2023-01-21 05:06] LABS: #Eosinphils 0.3 thou/uL (0.0-0.7); #Lymphocytes 0.7 thou/uL (1.20-3.40); #Monocytes 0.6 thou/uL (0.11-0.59); #Neutrophils 6.7 thou/uL (1.40-6.50); %Basophils 0.1 % (0.0-1.0); %Eosinophils 3.3 % (0.0-10.0); %Lymphocytes 7.9 % (21.0-51.0); %Monocytes 7.6 % (0.0-10.0); %Neutrophils 81.2 % (42.0-75.0); Hemoglobin 12.2 g/dL (14.0-18.0); Mean Corpuscular Hemoglobin 30.1 pg (27.0-31.0); Mean Corpuscular Volume 94.3 fl (78.0-98.0); Mean Platelet Volume 8.2 fL (7.4-10.4); Platelet Count 220 10x3/uL (130-400); RBC Distribution Width 13.6 % (11.5-14.5); Red Blood Cell (RBC) Count 4.06 mill/uL (4.70-6.10); White Blood Cell (WBC) Count 8.3 10x3/uL (4.8-10.8)
[2023-01-21 05:28] LABS: ALT (SGPT) 150 U/L (8-55); AST (SGOT) 56 U/L (5-34); Albumin 3.8 g/dL (3.4-4.8); Alkaline Phosphatase 101 U/L (40-110); Anion Gap 16 mmol/L (10-20); BUN (Urea Nitrogen) 48 mg/dL (8.4-25.7); Bilirubin, Total 0.7 mg/dL (0.2-1.2); Calc. Creatinine Clearance 59 mL/min (70-130); Calcium 8.6 mg/dL (7.8-10.44); Carbon Dioxide 23 mmol/L (23-31); Chloride 102 mmol/L (98-107); Estimated GFR 46; Globulin 2.3 g/dL (2.4-3.5); Glucose 158 mg/dL (83-110); Magnesium 1.8 mg/dL (1.6-2.6); Potassium 4.1 mmol/L (3.5-5.1); Protein, Total 6.1 g/dL (5.8-8.1); Sodium 137 mmol/L (136-145)
[2023-01-21] MEDS: Furosemide 40 MG/4 ML VIAL SLOW IVP SCH (05:43)
[2023-01-21] MEDS ORDERED: Furosemide 20 MG/2 ML VIAL SLOW IVP SCH (09:00)
[2023-01-21] MEDS: Aspirin 81 mg Enteric Coated Tablet PO SCH (10:13)
[2023-01-21] MEDS: Spironolactone 100 MG TAB PO SCH (10:14)
[2023-01-21] MEDS: Carvedilol 3.125 MG TAB PO SCH ×2 (10:14→21:53)
[2023-01-21] MEDS: HumaLOG 300 UNITS/3 ML VIAL SC PRN (18:01)
[2023-01-22] MEDS: Nitroglycerin 0.4 MG TAB (25 Tab Bottle) SL PRN ×3 (00:31→00:55)
[2023-01-22] MEDS: HYDROcodone/Acetaminophen 5/325 mg Tablet PO PRN (01:22)
[2023-01-22] MEDS: Acetaminophen 325 MG TAB PO PRN (03:51)
[2023-01-22 05:13] LABS: #Eosinphils 0.2 thou/uL (0.0-0.7); #Lymphocytes 0.6 thou/uL (1.20-3.40); #Monocytes 0.9 thou/uL (0.11-0.59); #Neutrophils 10.8 thou/uL (1.40-6.50); %Eosinophils 1.5 % (0.0-10.0); %Lymphocytes 4.4 % (21.0-51.0); %Monocytes 7.5 % (0.0-10.0); %Neutrophils 86.6 % (42.0-75.0); Hemoglobin 12.8 g/dL (14.0-18.0); Mean Corpuscular HGB CONC 32.8 g/dL (32.0-36.0); Mean Corpuscular Hemoglobin 30.8 pg (27.0-31.0); Mean Corpuscular Volume 93.9 fl (78.0-98.0); Mean Platelet Volume 8.3 fL (7.4-10.4); Platelet Count 219 10x3/uL (130-400); RBC Distribution Width 13.6 % (11.5-14.5); Red Blood Cell (RBC) Count 4.16 mill/uL (4.70-6.10); White Blood Cell (WBC) Count 12.5 10x3/uL (4.8-10.8)
[2023-01-22 05:33] LABS: ALT (SGPT) 120 U/L (8-55); AST (SGOT) 44 U/L (5-34); Albumin 3.8 g/dL (3.4-4.8); Alkaline Phosphatase 91 U/L (40-110); Anion Gap 16 mmol/L (10-20); BUN (Urea Nitrogen) 50 mg/dL (8.4-25.7); Bilirubin, Total 0.9 mg/dL (0.2-1.2); Calc. Creatinine Clearance 60 mL/min (70-130); Calcium 8.8 mg/dL (7.8-10.44); Carbon Dioxide 22 mmol/L (23-31); Chloride 100 mmol/L (98-107); Estimated GFR 48; Globulin 2.3 g/dL (2.4-3.5); Glucose 152 mg/dL (83-110); Potassium 4.4 mmol/L (3.5-5.1); Protein, Total 6.1 g/dL (5.8-8.1); Sodium 134 mmol/L (136-145)
[2023-01-22] MEDS: Carvedilol 3.125 MG TAB PO SCH ×2 (09:17→20:20)
[2023-01-22] MEDS: Aspirin 81 mg Enteric Coated Tablet PO SCH (09:17)
[2023-01-22] MEDS: Albumin 25% 25 GM/100 ML BOT IVPB SCH ×3 (11:59→23:50)
[2023-01-22] MEDS ORDERED: Furosemide 20 MG/2 ML VIAL SLOW IVP SCH (15:30)
[2023-01-22] MEDS: HumaLOG 300 UNITS/3 ML VIAL SC PRN (17:21)
[2023-01-22] MEDS: Atorvastatin Calcium 40 MG TAB PO SCH (20:20)
[2023-01-23] MEDS ORDERED: traZODone HCl 50 MG TAB PO SCH (03:00)
[2023-01-23 05:18] LABS: #Eosinphils 0.1 thou/uL (0.0-0.7); #Lymphocytes 0.6 thou/uL (1.20-3.40); #Neutrophils 11.9 thou/uL (1.40-6.50); %Basophils 0.1 % (0.0-1.0); %Eosinophils 0.5 % (0.0-10.0); %Lymphocytes 4.6 % (21.0-51.0); %Monocytes 7.2 % (0.0-10.0); %Neutrophils 87.6 % (42.0-75.0); Hemoglobin 13.7 g/dL (14.0-18.0); Mean Corpuscular HGB CONC 33.2 g/dL (32.0-36.0); Mean Corpuscular Hemoglobin 31.4 pg (27.0-31.0); Mean Corpuscular Volume 94.5 fl (78.0-98.0); Mean Platelet Volume 8.5 fL (7.4-10.4); Platelet Count 213 10x3/uL (130-400); RBC Distribution Width 13.9 % (11.5-14.5); Red Blood Cell (RBC) Count 4.36 mill/uL (4.70-6.10); White Blood Cell (WBC) Count 13.6 10x3/uL (4.8-10.8)
[2023-01-23] MEDS: Furosemide 20 MG/2 ML VIAL SLOW IVP SCH (05:32)
[2023-01-23] MEDS: Albumin 25% 25 GM/100 ML BOT IVPB SCH (05:33)
[2023-01-23 05:44] LABS: ALT (SGPT) 85 U/L (8-55); AST (SGOT) 31 U/L (5-34); Albumin 4.3 g/dL (3.4-4.8); Alkaline Phosphatase 89 U/L (40-110); Anion Gap 17 mmol/L (10-20); BUN (Urea Nitrogen) 59 mg/dL (8.4-25.7); Bilirubin, Total 1.2 mg/dL (0.2-1.2); Calc. Creatinine Clearance 51 mL/min (70-130); Calcium 9.1 mg/dL (7.8-10.44); Carbon Dioxide 24 mmol/L (23-31); Chloride 99 mmol/L (98-107); Estimated GFR 39; Globulin 2.2 g/dL (2.4-3.5); Glucose 146 mg/dL (83-110); Potassium 4.7 mmol/L (3.5-5.1); Protein, Total 6.5 g/dL (5.8-8.1); Sodium 135 mmol/L (136-145)
[2023-01-23] MEDS ORDERED: Sodium Chloride 0.9% 1,000 ML IV SCH ×2 (08:15→15:00)
[2023-01-23] MEDS ORDERED: Communication Order-Pharmacy FS SCH (08:15)
[2023-01-23] MEDS: Aspirin 81 mg Enteric Coated Tablet PO SCH (08:51)
[2023-01-23] MEDS: Carvedilol 3.125 MG TAB PO SCH ×2 (08:51→20:05)
[2023-01-23] MEDS: Acetylcysteine 20% 200 MG/ML 30 ML VIAL PO SCH ×2 (11:28→21:29)
[2023-01-23] MEDS: Atorvastatin Calcium 40 MG TAB PO SCH (20:05)
[2023-01-24] MEDS: HYDROcodone/Acetaminophen 5/325 mg Tablet PO PRN (01:42)
[2023-01-24 05:15] LABS: ALT (SGPT) 67 U/L (8-55); AST (SGOT) 28 U/L (5-34); Alkaline Phosphatase 78 U/L (40-110); Anion Gap 19 mmol/L (10-20); BUN (Urea Nitrogen) 59 mg/dL (8.4-25.7); Bilirubin, Total 1.1 mg/dL (0.2-1.2); Calc. Creatinine Clearance 54 mL/min (70-130); Calcium 9.1 mg/dL (7.8-10.44); Carbon Dioxide 21 mmol/L (23-31); Chloride 99 mmol/L (98-107); Estimated GFR 43; Globulin 2.4 g/dL (2.4-3.5); Glucose 160 mg/dL (83-110); Potassium 4.8 mmol/L (3.5-5.1); Protein, Total 6.4 g/dL (5.8-8.1); Sodium 134 mmol/L (136-145)
[2023-01-24] MEDS: Sodium Chloride 0.9% 1,000 ML IV SCH ×2 (05:34→16:19)
[2023-01-24] MEDS: Carvedilol 3.125 MG TAB PO SCH ×2 (05:35→20:57)
[2023-01-24] MEDS: Aspirin 81 mg Enteric Coated Tablet PO SCH (05:47)
[2023-01-24] MEDS ORDERED: Lidocaine 1% (PF) 30 ML VIAL ONE (10:58)
[2023-01-24] MEDS: Acetylcysteine 20% 200 MG/ML 30 ML VIAL PO SCH ×3 (11:58→21:46)
[2023-01-24] MEDS: Atorvastatin Calcium 40 MG TAB PO SCH (20:57)
[2023-01-25] MEDS ORDERED: QUEtiapine 25 MG TAB PO SCH (03:45)
[2023-01-25] MEDS ORDERED: OLANZapine 10 MG VIAL IM SCH ×2 (04:00)
[2023-01-25] MEDS ORDERED: Sterile Water 10 ML VIAL FS SCH (04:00)
[2023-01-25] MEDS: Aspirin 81 mg Enteric Coated Tablet PO SCH (09:20)
[2023-01-25] MEDS: Carvedilol 3.125 MG TAB PO SCH ×2 (09:20→20:15)
[2023-01-25] MEDS: Spironolactone 100 MG TAB PO SCH (09:20)
[2023-01-25 10:19] LABS: ALT (SGPT) 61 U/L (8-55); AST (SGOT) 20 U/L (5-34); Albumin 4.2 g/dL (3.4-4.8); Alkaline Phosphatase 96 U/L (40-110); Anion Gap 16 mmol/L (10-20); BUN (Urea Nitrogen) 62 mg/dL (8.4-25.7); Bilirubin, Total 1.2 mg/dL (0.2-1.2); Calc. Creatinine Clearance 56 mL/min (70-130); Calcium 9.2 mg/dL (7.8-10.44); Carbon Dioxide 25 mmol/L (23-31); Chloride 100 mmol/L (98-107); Estimated GFR 47; Globulin 2.3 g/dL (2.4-3.5); Glucose 179 mg/dL (83-110); Potassium 4.4 mmol/L (3.5-5.1); Protein, Total 6.5 g/dL (5.8-8.1); Sodium 137 mmol/L (136-145)
[2023-01-25 11:01] LABS: ALT (SGPT) 55 U/L (8-55); AST (SGOT) 24 U/L (5-34); Albumin 3.9 g/dL (3.4-4.8); Alkaline Phosphatase 92 U/L (40-110); Anion Gap 18 mmol/L (10-20); BUN (Urea Nitrogen) 62 mg/dL (8.4-25.7); Calc. Creatinine Clearance 56 mL/min (70-130); Carbon Dioxide 22 mmol/L (23-31); Chloride 100 mmol/L (98-107); Estimated GFR 47; Globulin 2.5 g/dL (2.4-3.5); Glucose 191 mg/dL (83-110); Potassium 4.6 mmol/L (3.5-5.1); Protein, Total 6.4 g/dL (5.8-8.1); Sodium 135 mmol/L (136-145)
[2023-01-25] MEDS: HumaLOG 300 UNITS/3 ML VIAL SC PRN ×2 (11:59→17:19)
[2023-01-25] MEDS: Furosemide 20 MG/2 ML VIAL SLOW IVP SCH (13:52)
[2023-01-25] MEDS: Atorvastatin Calcium 40 MG TAB PO SCH (20:15)
[2023-01-26 07:40] LABS: ALT (SGPT) 49 U/L (8-55); AST (SGOT) 18 U/L (5-34); Albumin 3.7 g/dL (3.4-4.8); Alkaline Phosphatase 80 U/L (40-110); Anion Gap 14 mmol/L (10-20); BUN (Urea Nitrogen) 59 mg/dL (8.4-25.7); Bilirubin, Total 1.2 mg/dL (0.2-1.2); Calc. Creatinine Clearance 63 mL/min (70-130); Carbon Dioxide 25 mmol/L (23-31); Chloride 103 mmol/L (98-107); Estimated GFR 54; Globulin 2.3 g/dL (2.4-3.5); Glucose 121 mg/dL (83-110); Potassium 4.2 mmol/L (3.5-5.1); Sodium 138 mmol/L (136-145)
[2023-01-26] MEDS: Empagliflozin 10 MG TAB PO SCH (09:36)
[2023-01-26] MEDS: Carvedilol 3.125 MG TAB PO SCH ×2 (09:36→21:10)
[2023-01-26] MEDS: Aspirin 81 mg Enteric Coated Tablet PO SCH (09:36)
[2023-01-26] MEDS: Atorvastatin Calcium 40 MG TAB PO SCH (21:10)
[2023-01-27 07:15] LABS: ALT (SGPT) 40 U/L (8-55); AST (SGOT) 15 U/L (5-34); Albumin 3.8 g/dL (3.4-4.8); Alkaline Phosphatase 101 U/L (40-110); Anion Gap 14 mmol/L (10-20); BUN (Urea Nitrogen) 56 mg/dL (8.4-25.7); Bilirubin, Total 0.8 mg/dL (0.2-1.2); Calc. Creatinine Clearance 59 mL/min (70-130); Calcium 9.2 mg/dL (7.8-10.44); Carbon Dioxide 25 mmol/L (23-31); Chloride 103 mmol/L (98-107); Estimated GFR 50; Globulin 2.2 g/dL (2.4-3.5); Glucose 155 mg/dL (83-110); Potassium 4.3 mmol/L (3.5-5.1); Sodium 138 mmol/L (136-145)
[2023-01-27] MEDS: Carvedilol 3.125 MG TAB PO SCH ×2 (09:36→20:52)
[2023-01-27] MEDS: Empagliflozin 10 MG TAB PO SCH (09:36)
[2023-01-27] MEDS: Aspirin 81 mg Enteric Coated Tablet PO SCH (09:36)
[2023-01-27] MEDS: Atorvastatin Calcium 40 MG TAB PO SCH (20:52)
[2023-01-28 05:58] LABS: Anion Gap 15 mmol/L (10-20); BUN (Urea Nitrogen) 49 mg/dL (8.4-25.7); Calc. Creatinine Clearance 61 mL/min (70-130); Calcium 9.1 mg/dL (7.8-10.44); Carbon Dioxide 23 mmol/L (23-31); Chloride 104 mmol/L (98-107); Estimated GFR 52; Glucose 182 mg/dL (83-110); Potassium 4.4 mmol/L (3.5-5.1); Sodium 138 mmol/L (136-145)
[2023-01-28] MEDS: HumaLOG 300 UNITS/3 ML VIAL SC PRN (07:29)
[2023-01-28] MEDS: Aspirin 81 mg Enteric Coated Tablet PO SCH (09:38)
[2023-01-28] MEDS: Empagliflozin 10 MG TAB PO SCH (09:38)
[2023-01-28] MEDS: Carvedilol 3.125 MG TAB PO SCH ×2 (09:38→20:25)
[2023-01-28] MEDS ORDERED: Spironolactone 25 MG TAB PO SCH (09:45)
[2023-01-28] MEDS ORDERED: Torsemide 10 MG TAB PO SCH (09:45)
[2023-01-28] MEDS: Atorvastatin Calcium 40 MG TAB PO SCH (20:25)
[2023-01-29] MEDS ORDERED: Spironolactone 25 MG TAB PO SCH ×2 (08:00→14:46)
[2023-01-29] MEDS: Aspirin 81 mg Enteric Coated Tablet PO SCH (08:22)
[2023-01-29] MEDS: Empagliflozin 10 MG TAB PO SCH (08:23)
[2023-01-29] MEDS: Carvedilol 3.125 MG TAB PO SCH ×2 (08:23→21:15)
[2023-01-29] MEDS: Torsemide 10 MG TAB PO SCH (08:41)
[2023-01-29 09:54] LABS: #Eosinphils 0.3 thou/uL (0.0-0.7); #Lymphocytes 0.9 thou/uL (1.20-3.40); #Monocytes 0.8 thou/uL (0.11-0.59); %Basophils 0.3 % (0.0-1.0); %Eosinophils 2.5 % (0.0-10.0); %Lymphocytes 7.8 % (21.0-51.0); %Monocytes 6.9 % (0.0-10.0); %Neutrophils 82.5 % (42.0-75.0); Hemoglobin 12.3 g/dL (14.0-18.0); Mean Corpuscular HGB CONC 32.6 g/dL (32.0-36.0); Mean Corpuscular Hemoglobin 30.8 pg (27.0-31.0); Mean Corpuscular Volume 94.5 fl (78.0-98.0); Mean Platelet Volume 8.4 fL (7.4-10.4); Platelet Count 228 10x3/uL (130-400); RBC Distribution Width 13.9 % (11.5-14.5); Red Blood Cell (RBC) Count 3.99 mill/uL (4.70-6.10)
[2023-01-29 10:17] LABS: Albumin 3.8 g/dL (3.4-4.8); Anion Gap 16 mmol/L (10-20); BUN (Urea Nitrogen) 48 mg/dL (8.4-25.7); BUN/Creatinine Ratio 35.56; Calc. Creatinine Clearance 61 mL/min (70-130); Calcium 9.6 mg/dL (7.8-10.44); Carbon Dioxide 25 mmol/L (23-31); Chloride 104 mmol/L (98-107); Estimated GFR 53; Glucose 133 mg/dL (83-110); Phosphorus 3.6 mg/dL (2.3-4.7); Potassium 4.2 mmol/L (3.5-5.1); Sodium 141 mmol/L (136-145)
[2023-01-29] MEDS: Atorvastatin Calcium 40 MG TAB PO SCH (21:15)
[2023-01-30 05:19] LABS: Albumin 3.5 g/dL (3.4-4.8); Anion Gap 17 mmol/L (10-20); BUN (Urea Nitrogen) 47 mg/dL (8.4-25.7); BUN/Creatinine Ratio 35.34; Calc. Creatinine Clearance 62 mL/min (70-130); Calcium 9.1 mg/dL (7.8-10.44); Carbon Dioxide 25 mmol/L (23-31); Chloride 105 mmol/L (98-107); Estimated GFR 54; Glucose 120 mg/dL (83-110); Phosphorus 3.7 mg/dL (2.3-4.7); Potassium 4.6 mmol/L (3.5-5.1); Sodium 142 mmol/L (136-145)
[2023-01-30] MEDS ORDERED: Spironolactone 25 MG TAB PO SCH (09:00)
[2023-01-30] MEDS: Torsemide 10 MG TAB PO SCH (09:32)
[2023-01-30] MEDS: Empagliflozin 10 MG TAB PO SCH (09:33)
[2023-01-30] MEDS: Aspirin 81 mg Enteric Coated Tablet PO SCH (09:33)
[2023-01-30] MEDS: Carvedilol 3.125 MG TAB PO SCH (09:33)
[2023-01-30 11:51] VITALS: BP 145/80; TEMP 97.6
== END 2023-01-30 12:00 | DRG 280 ==
LOC: 2NO 21:01
PROVIDERS: ADMIT Internal Medicine; ATTEND Internal Medicine
DX: I50.43 Acute on chronic combined systolic (congestive) and diastolic (congestive) heart failure (principal); G93.41 Metabolic encephalopathy; I21.4 Non-ST elevation (NSTEMI) myocardial infarction; N17.9 Acute kidney failure, unspecified; R45.851 Suicidal ideations; R18.8 Other ascites; I42.8 Other cardiomyopathies; Z66 Do not resuscitate; F32.A Depression, unspecified; E78.5 Hyperlipidemia, unspecified; I12.9 Hypertensive chronic kidney disease with stage 1 through stage 4 chronic kidney disease, or unspecified chronic kidney disease; K21.9 Gastro-esophageal reflux disease without esophagitis; R74.01 Elevation of levels of liver transaminase levels; H54.40 Blindness, one eye, unspecified eye; N18.30 Chronic kidney disease, stage 3 unspecified; E11.22 Type 2 diabetes mellitus with diabetic chronic kidney disease; I08.3 Combined rheumatic disorders of mitral, aortic and tricuspid valves; K76.1 Chronic passive congestion of liver; E66.9 Obesity, unspecified; Z86.010 Personal history of colon polyps; Z68.36 Body mass index [BMI] 36.0-36.9, adult; Z79.899 Other long term (current) drug therapy; Z79.82 Long term (current) use of aspirin; Z79.4 Long term (current) use of insulin; I25.2 Old myocardial infarction
CPT/HCPCS: 36415; 36416; 71045; 76700; 76856; 80048; 80053; 80069; 81001; 82570; 83036; 83735; 83880; 84156; 84300; 84443; 84484; 84540; 85025; 93005; 93010; 93306; J0132; J1815; J1940; J2001; J7050; P9047